=== PATIENT | male | born 1945 | race Caucasian/White ===

== ENCOUNTER 2021-07-23 16:17 | Emergency (ER) | payer MEDICARE, SELFPAY ==
[2021-07-23] VITALS (20 sets, daily range): BP systolic 118–162; BP diastolic 67–92; PULSE 84–101; RESP 15–20; TEMP 36.4; O2SAT 92–97
[2021-07-23 18:03] LABS: Add Manual Diff / Slide Review NO; Basophils Absolute Auto 0 /uL (0-100); Basophils Percent Auto 0.5 % (0-2); Eosinophils Absolute Auto 200 /uL (0-450); Eosinophils Percent Auto 3.4 % (2-4); Hemoglobin 13.6 g/dL (13.5-17.5); Lymphocytes Absolute Auto 1500 /uL (1100-4500); Lymphocytes Percent Auto 21.8 % (25-40); Mean Corpuscular HGB Conc 33.2 % (30-36); Mean Corpuscular Hemoglobin 29.7 PG (26-34); Mean Corpuscular Volume 89.4 fL (80-100); Monocytes Absolute Auto 700 /uL (0-900); Monocytes Percent Auto 10.6 % (3-14); Neutrophils Absolute Auto 4500 /uL (1500-7000); Neutrophils Percent Auto 63.7 % (50-75); Platelet Count 303 X10^3/uL (150-400); Red Blood Cell Count 4.58 X10^6/uL (4.5-5.9); Red Cell Distribution Width 14.8 % (11.6-14.8)
[2021-07-23 18:12] LABS: Alanine Aminotransferase 47 IU/L (<50); Albumin 4.3 g/dL (3.5-5.0); Albumin Globulin Ratio 0.9 (1.0-2.8); Alkaline Phosphatase 183 U/L (38-126); Aspartate Aminotransferase 55 IU/L (17-59); BUN Creatinine Ratio 25.2 (6-22); Bilirubin Total 0.5 mg/dL (0.2-1.3); Blood Urea Nitrogen 26 mg/dL (9-20); Calcium 9.7 mg/dL (8.4-10.2); Carbon Dioxide 25 mmol/L (22-32); Chloride 107 mmol/L (98-107); Estimated Glomerular Filt Rate > 60.0 mL/min (>60); Globulin 4.9 g/dL (1.7-4.1); Glucose 152 mg/dL (80-110); HEMOLYSIS < 15 (0-50); Lipase 121 U/L (23-300); Potassium 4.4 mmol/L (3.4-5.1); Sodium 139 mmol/L (137-145); Total Protein 9.2 g/dL (6.3-8.2)
[2021-07-23] MEDS: LORazepam 2 MG/ML INJ 1 MG IV (18:26)
--- NOTE | 2021-07-23 18:48 | PC.NURSE ---
Pt's son called, wanted update on pt's status. Advised the son that pt is agitated and restless, actively trying to get out of bed. Son is surprised at restlessness, states this is a new onset. Provider aware.
--- NOTE | 2021-07-23 18:52 | PC.NURSE ---
Pt is restless, agitated and actively trying to get out of bed. Provider aware. Pt given 1mg of Ativan to ease restlessness.
--- NOTE | 2021-07-23 19:42 | ED_ITS ---
HPI - Abdominal Pain <Lalo Caldera PA-C - Last Filed: 07/23/21 20:10> General Chief Complaint: Abdominal Pain Stated Complaint: abd pain, vomiting Time Seen by Provider: 07/23/21 16:34 Source: EMS and other Mode of arrival: EMS History of Present Illness HPI narrative: Patient is a 76-year-old male with a history of traumatic brain injury presenting to the emergency department via EMS for an evaluation of abdominal pain. Per EMS, they were contacted to assist the patient for reported abdominal pain and hematemesis. EMS states that they were unable to find evidence of hematemesis after arriving on the scene and the patient stated that he was not in any distress. Patient came to the emergency department from [facility]. Per the nurse from [facility] the patient was supposed to be sent to a custodial facility following a right hip hemiarthroplasty on 06/19/21, however the patient tested positive for COVID-19 on 06/23/2021 prior to his discharge and they were unable to find a custodial facility to take the patient. Patient has been at the [facility] since then. The nurse also notes that the patient has been increasingly agitated during the nighttime hours and has frequently attempted to get out of bed and has been a disturbance to other residents. Patient is unable to answer questions directly regarding his level of discomfort and what brought him to the emergency department. When asked he denies any episodes of vomiting or current abdominal pain. He states that he has not experienced any fever, chest pain, cough, shortness of breath, or any other concerning symptoms. Related Data Previous Rx's Medication Instructions Recorded cefpodoxime 200 mg tablet 200 mg PO BID 10 Days #20 tab 07/26/21 Allergies Allergy/AdvReac Type Severity Reaction Status Date / Time No Known Drug Allergies Allergy Verified 07/24/21 07:57 Review of Systems <Lalo Caldera PA-C - Last Filed: 07/23/21 20:10> Constitutional Constitutional: Denies chills, Denies fatigue, Denies fever(s), Denies frequent falls, Denies lethargy and Denies weakness Eyes Eyes: Denies loss of vision ENT Ears, Nose, Mouth, and Throat: Denies dizziness and Denies neck pain Cardiovascular Cardiovascular: Denies chest pain, Denies irregular heart rhythm, Denies lightheadedness, Denies palpitations, Denies dyspnea, Denies dyspnea on exertion and Denies orthopnea Respiratory Respiratory: Denies cough, Denies dyspnea, Denies dyspnea on exertion and Denies wheezing Gastrointestinal Gastrointestinal: Denies abdominal pain, Denies change in bowel habits, Denies diarrhea, Denies nausea and Denies vomiting Genitourinary Genitourinary: Denies hematuria, Denies flank pain, Denies urinary incontinence and Denies urinary urgency Musculoskeletal Musculoskeletal: Denies back pain, Denies muscle weakness, Denies neck pain, Denies numbness and Denies tingling Neurologic Neurologic: Denies behavioral changes, Denies confusion, Denies dizziness, Denies frequent falls, Denies loss of vision, Denies numbness, Denies tingling and Denies weakness Psychiatric Psychiatric: Denies behavioral changes and Denies confusion Endocrine Endocrine: Denies fatigue and Denies palpitations Allergic/Immunologic Allergic/Immunologic: Denies wheezing Patient History <Lalo Caldera PA-C - Last Filed: 07/23/21 20:10> Social History household members: family Exam <Lalo Caldera PA-C - Last Filed: 07/23/21 20:10> Narrative Exam Narrative: GENERAL: 76 year old patient appears stated age. Well-developed patient, in mild distress. Appears confused on questioning. HEAD: Atraumatic. Normocephalic. EYES: Pupils equal round and reactive. Extraocular motions intact. No scleral icterus. No injection or drainage. ENT: Nose without bleeding, purulent drainage. Throat without erythema, tonsillar hypertrophy or exudate. Airway patent. NECK: Trachea midline. Non tender CARDIOVASCULAR: Regular rate and rhythm without murmurs, gallops, or rubs. RESPIRATORY: Clear to auscultation. Breath sounds equal bilaterally. No wheezes, rales, or rhonchi. GASTROINTESTINAL: Abdomen soft, non-tender. Area apparent ecchymosis noted to the right lower quadrant. No significant tenderness to palpation noted throughout the four quadrants of the abdomen. EXTREMITIES: No edema or joint tenderness. BACK: Nontender without deformity or crepitance. No flank tenderness. NEURO: AOx3. SKIN: No rash or erythema of visible areas Initial Vital Signs Initial Vital Signs: Vital Signs Pulse Rate 87 07/23/21 16:20 Pulse Oximetry 96 07/23/21 16:20 <Genna Castillo MD - Last Filed: 07/27/21 00:17> Initial Vital Signs Initial Vital Signs: Vital Signs Pulse Rate 87 07/23/21 16:20 Pulse Oximetry 96 07/23/21 16:20 <Ro No DO - Last Filed: 08/02/21 04:59> Initial Vital Signs Initial Vital Signs: Vital Signs Pulse Rate 87 07/23/21 16:20 Pulse Oximetry 96 07/23/21 16:20 <Juma Hernandez DO - Last Filed: 07/26/21 18:54> Initial Vital Signs Initial Vital Signs: Vital Signs Pulse Rate 87 07/23/21 16:20 Pulse Oximetry 96 07/23/21 16:20 Course <Lalo Caldera PA-C - Last Filed: 07/23/21 20:10> Orders Ordered: Discontinued Medications Aspirin (Aspirin Ec 81 Mg Tablet) 81 mg PO DAILY [facility] Last Admin: 07/26/21 09:16 Dose: 81 mg Documented by: Admin: 07/25/21 08:54 Dose: 81 mg Documented by: Admin: 07/24/21 09:56 Dose: 81 mg Documented by: CRIS Atorvastatin Calcium (Atorvastatin 20 Mg Tablet) 20 mg PO DAILY [facility] Last Admin: 07/26/21 09:17 Dose: 20 mg Documented by: Admin: 07/25/21 09:16 Dose: 20 mg Documented by: VICTOR HUGO Admin: 07/24/21 09:56 Dose: 20 mg Documented by: CRIS Calcium Carbonate (Calcium Carbonate 500 Mg Tab) 500 mg PO NOW ONE Stop: 07/23/21 20:11 Last Admin: 07/23/21 21:35 Dose: Not Given Documented by: DRU Finasteride (Finasteride 5 Mg Tablet) 5 mg PO DAILY [facility] Last Admin: 07/26/21 09:17 Dose: 5 mg Documented by: Admin: 07/25/21 09:15 Dose: 5 mg Documented by: VICTOR HUGO Admin: 07/24/21 10:01 Dose: 5 mg Documented by: CRIS Ceftriaxone Sodium 1,000 mg/ (Sodium Chloride) 100 mls @ 200 mls/hr IV NOW ONE Stop: 07/26/21 17:20 Last Infusion: 07/26/21 18:29 Dose: 0 mls/hr Documented by: Admin: 07/26/21 17:00 Dose: 200 mls/hr Documented by: ERICA Insulin Glargine (Insulin Glargine 100 Unit/Ml 3ml Pen) 10 unit SUBCUT BEDTIME [facility] Last Admin: 07/25/21 21:16 Dose: 10 unit Documented by: CHEYENNE Cosigned by: SUSAN Admin: 07/24/21 21:08 Dose: 10 unit Documented by: APRIL Cosigned by: DRU Lamotrigine (Lamotrigine 25 Mg Chew Tablet) 25 mg PO NOW ONE Stop: 07/23/21 20:11 Last Admin: 07/23/21 21:35 Dose: Not Given Documented by: DRU Lamotrigine (Lamotrigine 100 Mg Tablet) 200 mg PO BID [facility] Last Admin: 07/26/21 09:18 Dose: 200 mg Documented by: Admin: 07/25/21 21:15 Dose: 200 mg Documented by: Admin: 07/25/21 08:54 Dose: 200 mg Documented by: Admin: 07/24/21 21:08 Dose: 200 mg Documented by: Admin: 07/24/21 10:00 Dose: 200 mg Documented by: CRIS Lamotrigine (Lamotrigine 25 Mg Chew Tablet) 25 mg PO BID [facility] Last Admin: 07/26/21 09:18 Dose: 25 mg Documented by: Admin: 07/25/21 21:14 Dose: 25 mg Documented by: Admin: 07/25/21 09:16 Dose: 25 mg Documented by: VICTOR HUGO Admin: 07/24/21 21:04 Dose: 25 mg Documented by: Admin: 07/24/21 10:00 Dose: 25 mg Documented by: CRIS Levetiracetam (Levetiracetam 250 Mg Tablet) 250 mg PO NOW ONE Stop: 07/23/21 20:11 Last Admin: 07/23/21 20:59 Dose: 250 mg Documented by: ISAIAH Lidocaine HCl (Lidocaine 2% (Glydo) 6 Ml Gel) 6 ml TOP NOW ONE Stop: 07/23/21 19:31 Last Admin: 07/23/21 20:17 Dose: 6 ml Documented by: ARTEM Lidocaine HCl (Lidocaine 2% (Glydo) 6 Ml Gel) 6 ml TOP NOW ONE Stop: 07/26/21 07:28 Last Admin: 07/26/21 07:53 Dose: 6 ml Documented by: DERIC Lorazepam (Lorazepam 0.5 Mg Tablet) 0.5 mg PO NOW ONE Stop: 07/23/21 18:14 Last Admin: 07/23/21 18:26 Dose: Not Given Documented by: CYN Lorazepam (Lorazepam 2 Mg/Ml Inj) 1 mg IV NOW ONE Stop: 07/23/21 18:20 Last Admin: 07/23/21 18:26 Dose: 1 mg Documented by: CYN Metoprolol Succinate (Metoprolol Er 25 Mg Tablet) 25 mg PO NOW ONE Stop: 07/23/21 20:11 Last Admin: 07/23/21 20:58 Dose: 25 mg Documented by: ISAIAH Metoprolol Succinate (Metoprolol Er 25 Mg Tablet) 12.5 mg PO BID [facility] Last Admin: 07/26/21 09:17 Dose: 12.5 mg Documented by: Admin: 07/25/21 21:15 Dose: 12.5 mg Documented by: Admin: 07/25/21 09:16 Dose: 12.5 mg Documented by: VICTOR HUGO Admin: 07/24/21 21:07 Dose: 12.5 mg Documented by: Admin: 07/24/21 09:56 Dose: 12.5 mg Documented by: CRIS Phenytoin (Phenytoin 50 Mg Chew Tab) 300 mg PO BID [facility] Phenytoin Sodium (Phenytoin Er 100 Mg Capsule) 300 mg PO DAILY [facility] Last Admin: 07/26/21 09:18 Dose: 300 mg Documented by: Admin: 07/25/21 09:15 Dose: 300 mg Documented by: VICTOR HUGO Admin: 07/24/21 10:01 Dose: 300 mg Documented by: CRIS Phenytoin Sodium (Phenytoin Er 100 Mg Capsule) 400 mg PO QPM [facility] Last Admin: 07/26/21 16:43 Dose: 400 mg Documented by: Admin: 07/25/21 17:30 Dose: 400 mg Documented by: Admin: 07/24/21 17:46 Dose: 400 mg Documented by: REAGANIKE Risperidone (Risperidone 1 Mg Tablet) 1 mg PO NOW ONE Stop: 07/24/21 22:06 Last Admin: 07/24/21 22:18 Dose: 1 mg Documented by: APRIL Tamsulosin HCl (Tamsulosin 0.4 Mg Capsule) 0.4 mg PO DAILY [facility] Last Admin: 07/26/21 09:19 Dose: 0.4 mg Documented by: Admin: 07/25/21 08:54 Dose: 0.4 mg Documented by: Admin: 07/24/21 10:00 Dose: 0.4 mg Documented by: CRIS Topiramate (Topiramate 25 Mg Tablet) 50 mg PO NOW ONE Stop: 07/23/21 20:11 Last Admin: 07/23/21 20:58 Dose: 50 mg Documented by: ISAIAH Topiramate (Topiramate 25 Mg Tablet) 50 mg PO BID [facility] Last Admin: 07/26/21 09:19 Dose: 50 mg Documented by: Admin: 07/25/21 21:15 Dose: 50 mg Documented by: Admin: 07/25/21 09:15 Dose: 50 mg Documented by: VICTOR HUGO Admin: 07/24/21 21:03 Dose: 50 mg Documented by: Admin: 07/24/21 10:01 Dose: 50 mg Documented by: CRIS Vital Signs Vital signs: Vital Signs - 8 hr 07/26/21 17:46 07/26/21 17:47 Pulse Rate 93 H Blood Pressure 105/63 Pulse Oximetry 95 <Genna Castillo MD - Last Filed: 07/27/21 00:17> Orders Ordered: Discontinued Medications Aspirin (Aspirin Ec 81 Mg Tablet) 81 mg PO DAILY [facility] Last Admin: 07/26/21 09:16 Dose: 81 mg Documented by: Admin: 07/25/21 08:54 Dose: 81 mg Documented by: Admin: 07/24/21 09:56 Dose: 81 mg Documented by: CRIS Atorvastatin Calcium (Atorvastatin 20 Mg Tablet) 20 mg PO DAILY [facility] Last Admin: 07/26/21 09:17 Dose: 20 mg Documented by: Admin: 07/25/21 09:16 Dose: 20 mg Documented by: VICTOR HUGO Admin: 07/24/21 09:56 Dose: 20 mg Documented by: CRIS Calcium Carbonate (Calcium Carbonate 500 Mg Tab) 500 mg PO NOW ONE Stop: 07/23/21 20:11 Last Admin: 07/23/21 21:35 Dose: Not Given Documented by: DRU Finasteride (Finasteride 5 Mg Tablet) 5 mg PO DAILY [facility] Last Admin: 07/26/21 09:17 Dose: 5 mg Documented by: Admin: 07/25/21 09:15 Dose: 5 mg Documented by: VICTOR HUGO Admin: 07/24/21 10:01 Dose: 5 mg Documented by: CRIS Ceftriaxone Sodium 1,000 mg/ (Sodium Chloride) 100 mls @ 200 mls/hr IV NOW ONE Stop: 07/26/21 17:20 Last Infusion: 07/26/21 18:29 Dose: 0 mls/hr Documented by: Admin: 07/26/21 17:00 Dose: 200 mls/hr Documented by: ERICA Insulin Glargine (Insulin Glargine 100 Unit/Ml 3ml Pen) 10 unit SUBCUT BEDTIME [facility] Last Admin: 07/25/21 21:16 Dose: 10 unit Documented by: CHEYENNE Cosigned by: SUSAN Admin: 07/24/21 21:08 Dose: 10 unit Documented by: APRIL Cosigned by: DRU Lamotrigine (Lamotrigine 25 Mg Chew Tablet) 25 mg PO NOW ONE Stop: 07/23/21 20:11 Last Admin: 07/23/21 21:35 Dose: Not Given Documented by: DRU Lamotrigine (Lamotrigine 100 Mg Tablet) 200 mg PO BID [facility] Last Admin: 07/26/21 09:18 Dose: 200 mg Documented by: Admin: 07/25/21 21:15 Dose: 200 mg Documented by: Admin: 07/25/21 08:54 Dose: 200 mg Documented by: Admin: 07/24/21 21:08 Dose: 200 mg Documented by: Admin: 07/24/21 10:00 Dose: 200 mg Documented by: CRIS Lamotrigine (Lamotrigine 25 Mg Chew Tablet) 25 mg PO BID [facility] Last Admin: 07/26/21 09:18 Dose: 25 mg Documented by: Admin: 07/25/21 21:14 Dose: 25 mg Documented by: Admin: 07/25/21 09:16 Dose: 25 mg Documented by: VICTOR HUGO Admin: 07/24/21 21:04 Dose: 25 mg Documented by: Admin: 07/24/21 10:00 Dose: 25 mg Documented by: CRIS Levetiracetam (Levetiracetam 250 Mg Tablet) 250 mg PO NOW ONE Stop: 07/23/21 20:11 Last Admin: 07/23/21 20:59 Dose: 250 mg Documented by: ISAIAH Lidocaine HCl (Lidocaine 2% (Glydo) 6 Ml Gel) 6 ml TOP NOW ONE Stop: 07/23/21 19:31 Last Admin: 07/23/21 20:17 Dose: 6 ml Documented by: ARTEM Lidocaine HCl (Lidocaine 2% (Glydo) 6 Ml Gel) 6 ml TOP NOW ONE Stop: 07/26/21 07:28 Last Admin: 07/26/21 07:53 Dose: 6 ml Documented by: DERIC Lorazepam (Lorazepam 0.5 Mg Tablet) 0.5 mg PO NOW ONE Stop: 07/23/21 18:14 Last Admin: 07/23/21 18:26 Dose: Not Given Documented by: CYN Lorazepam (Lorazepam 2 Mg/Ml Inj) 1 mg IV NOW ONE Stop: 07/23/21 18:20 Last Admin: 07/23/21 18:26 Dose: 1 mg Documented by: CYN Metoprolol Succinate (Metoprolol Er 25 Mg Tablet) 25 mg PO NOW ONE Stop: 07/23/21 20:11 Last Admin: 07/23/21 20:58 Dose: 25 mg Documented by: ISAIAH Metoprolol Succinate (Metoprolol Er 25 Mg Tablet) 12.5 mg PO BID [facility] Last Admin: 07/26/21 09:17 Dose: 12.5 mg Documented by: Admin: 07/25/21 21:15 Dose: 12.5 mg Documented by: Admin: 07/25/21 09:16 Dose: 12.5 mg Documented by: VICTOR HUGO Admin: 07/24/21 21:07 Dose: 12.5 mg Documented by: Admin: 07/24/21 09:56 Dose: 12.5 mg Documented by: CRIS Phenytoin (Phenytoin 50 Mg Chew Tab) 300 mg PO BID [facility] Phenytoin Sodium (Phenytoin Er 100 Mg Capsule) 300 mg PO DAILY [facility] Last Admin: 07/26/21 09:18 Dose: 300 mg Documented by: Admin: 07/25/21 09:15 Dose: 300 mg Documented by: VICTOR HUGO Admin: 07/24/21 10:01 Dose: 300 mg Documented by: CRIS Phenytoin Sodium (Phenytoin Er 100 Mg Capsule) 400 mg PO QPM [facility] Last Admin: 07/26/21 16:43 Dose: 400 mg Documented by: Admin: 07/25/21 17:30 Dose: 400 mg Documented by: Admin: 07/24/21 17:46 Dose: 400 mg Documented by: ERICA Risperidone (Risperidone 1 Mg Tablet) 1 mg PO NOW ONE Stop: 07/24/21 22:06 Last Admin: 07/24/21 22:18 Dose: 1 mg Documented by: APRIL Tamsulosin HCl (Tamsulosin 0.4 Mg Capsule) 0.4 mg PO DAILY [facility] Last Admin: 07/26/21 09:19 Dose: 0.4 mg Documented by: Admin: 07/25/21 08:54 Dose: 0.4 mg Documented by: Admin: 07/24/21 10:00 Dose: 0.4 mg Documented by: CRIS Topiramate (Topiramate 25 Mg Tablet) 50 mg PO NOW ONE Stop: 07/23/21 20:11 Last Admin: 07/23/21 20:58 Dose: 50 mg Documented by: ISAIAH Topiramate (Topiramate 25 Mg Tablet) 50 mg PO BID [facility] Last Admin: 07/26/21 09:19 Dose: 50 mg Documented by: Admin: 07/25/21 21:15 Dose: 50 mg Documented by: Admin: 07/25/21 09:15 Dose: 50 mg Documented by: VICTOR HUGO Admin: 07/24/21 21:03 Dose: 50 mg Documented by: Admin: 07/24/21 10:01 Dose: 50 mg Documented by: CRIS Vital Signs Vital signs: Vital Signs - 8 hr 07/26/21 17:46 07/26/21 17:47 Pulse Rate 93 H Blood Pressure 105/63 Pulse Oximetry 95 <Ro No DO - Last Filed: 08/02/21 04:59> Orders Ordered: Discontinued Medications Aspirin (Aspirin Ec 81 Mg Tablet) 81 mg PO DAILY [facility] Last Admin: 07/26/21 09:16 Dose: 81 mg Documented by: Admin: 07/25/21 08:54 Dose: 81 mg Documented by: Admin: 07/24/21 09:56 Dose: 81 mg Documented by: CRIS Atorvastatin Calcium (Atorvastatin 20 Mg Tablet) 20 mg PO DAILY [facility] Last Admin: 07/26/21 09:17 Dose: 20 mg Documented by: Admin: 07/25/21 09:16 Dose: 20 mg Documented by: VICTOR HUGO Admin: 07/24/21 09:56 Dose: 20 mg Documented by: CRIS Calcium Carbonate (Calcium Carbonate 500 Mg Tab) 500 mg PO NOW ONE Stop: 07/23/21 20:11 Last Admin: 07/23/21 21:35 Dose: Not Given Documented by: DRU Finasteride (Finasteride 5 Mg Tablet) 5 mg PO DAILY [facility] Last Admin: 07/26/21 09:17 Dose: 5 mg Documented by: Admin: 07/25/21 09:15 Dose: 5 mg Documented by: VICTOR HUGO Admin: 07/24/21 10:01 Dose: 5 mg Documented by: CRIS Ceftriaxone Sodium 1,000 mg/ (Sodium Chloride) 100 mls @ 200 mls/hr IV NOW ONE Stop: 07/26/21 17:20 Last Infusion: 07/26/21 18:29 Dose: 0 mls/hr Documented by: Admin: 07/26/21 17:00 Dose: 200 mls/hr Documented by: ERICA Insulin Glargine (Insulin Glargine 100 Unit/Ml 3ml Pen) 10 unit SUBCUT BEDTIME [facility] Last Admin: 07/25/21 21:16 Dose: 10 unit Documented by: CHEYENNE Cosigned by: SUSAN Admin: 07/24/21 21:08 Dose: 10 unit Documented by: APRIL Cosigned by: DRU Lamotrigine (Lamotrigine 25 Mg Chew Tablet) 25 mg PO NOW ONE Stop: 07/23/21 20:11 Last Admin: 07/23/21 21:35 Dose: Not Given Documented by: DRU Lamotrigine (Lamotrigine 100 Mg Tablet) 200 mg PO BID [facility] Last Admin: 07/26/21 09:18 Dose: 200 mg Documented by: Admin: 07/25/21 21:15 Dose: 200 mg Documented by: Admin: 07/25/21 08:54 Dose: 200 mg Documented by: Admin: 07/24/21 21:08 Dose: 200 mg Documented by: Admin: 07/24/21 10:00 Dose: 200 mg Documented by: CRIS Lamotrigine (Lamotrigine 25 Mg Chew Tablet) 25 mg PO BID [facility] Last Admin: 07/26/21 09:18 Dose: 25 mg Documented by: Admin: 07/25/21 21:14 Dose: 25 mg Documented by: Admin: 07/25/21 09:16 Dose: 25 mg Documented by: VICTOR HUGO Admin: 07/24/21 21:04 Dose: 25 mg Documented by: Admin: 07/24/21 10:00 Dose: 25 mg Documented by: CRIS Levetiracetam (Levetiracetam 250 Mg Tablet) 250 mg PO NOW ONE Stop: 07/23/21 20:11 Last Admin: 07/23/21 20:59 Dose: 250 mg Documented by: ISAIAH Lidocaine HCl (Lidocaine 2% (Glydo) 6 Ml Gel) 6 ml TOP NOW ONE Stop: 07/23/21 19:31 Last Admin: 07/23/21 20:17 Dose: 6 ml Documented by: ARTEM Lidocaine HCl (Lidocaine 2% (Glydo) 6 Ml Gel) 6 ml TOP NOW ONE Stop: 07/26/21 07:28 Last Admin: 07/26/21 07:53 Dose: 6 ml Documented by: DERIC Lorazepam (Lorazepam 0.5 Mg Tablet) 0.5 mg PO NOW ONE Stop: 07/23/21 18:14 Last Admin: 07/23/21 18:26 Dose: Not Given Documented by: CYN Lorazepam (Lorazepam 2 Mg/Ml Inj) 1 mg IV NOW ONE Stop: 07/23/21 18:20 Last Admin: 07/23/21 18:26 Dose: 1 mg Documented by: CYN Metoprolol Succinate (Metoprolol Er 25 Mg Tablet) 25 mg PO NOW ONE Stop: 07/23/21 20:11 Last Admin: 07/23/21 20:58 Dose: 25 mg Documented by: ISAIAH Metoprolol Succinate (Metoprolol Er 25 Mg Tablet) 12.5 mg PO BID [facility] Last Admin: 07/26/21 09:17 Dose: 12.5 mg Documented by: Admin: 07/25/21 21:15 Dose: 12.5 mg Documented by: Admin: 07/25/21 09:16 Dose: 12.5 mg Documented by: VICTOR HUGO Admin: 07/24/21 21:07 Dose: 12.5 mg Documented by: Admin: 07/24/21 09:56 Dose: 12.5 mg Documented by: CRIS Phenytoin (Phenytoin 50 Mg Chew Tab) 300 mg PO BID [facility] Phenytoin Sodium (Phenytoin Er 100 Mg Capsule) 300 mg PO DAILY [facility] Last Admin: 07/26/21 09:18 Dose: 300 mg Documented by: Admin: 07/25/21 09:15 Dose: 300 mg Documented by: VICTOR HUGO Admin: 07/24/21 10:01 Dose: 300 mg Documented by: CRIS Phenytoin Sodium (Phenytoin Er 100 Mg Capsule) 400 mg PO QPM [facility] Last Admin: 07/26/21 16:43 Dose: 400 mg Documented by: Admin: 07/25/21 17:30 Dose: 400 mg Documented by: Admin: 07/24/21 17:46 Dose: 400 mg Documented by: ERICA Risperidone (Risperidone 1 Mg Tablet) 1 mg PO NOW ONE Stop: 07/24/21 22:06 Last Admin: 07/24/21 22:18 Dose: 1 mg Documented by: APRIL Tamsulosin HCl (Tamsulosin 0.4 Mg Capsule) 0.4 mg PO DAILY [facility] Last Admin: 07/26/21 09:19 Dose: 0.4 mg Documented by: Admin: 07/25/21 08:54 Dose: 0.4 mg Documented by: Admin: 07/24/21 10:00 Dose: 0.4 mg Documented by: CRIS Topiramate (Topiramate 25 Mg Tablet) 50 mg PO NOW ONE Stop: 07/23/21 20:11 Last Admin: 07/23/21 20:58 Dose: 50 mg Documented by: ISAIAH Topiramate (Topiramate 25 Mg Tablet) 50 mg PO BID [facility] Last Admin: 07/26/21 09:19 Dose: 50 mg Documented by: Admin: 07/25/21 21:15 Dose: 50 mg Documented by: Admin: 07/25/21 09:15 Dose: 50 mg Documented by: VICTOR HUGO Admin: 07/24/21 21:03 Dose: 50 mg Documented by: Admin: 07/24/21 10:01 Dose: 50 mg Documented by: CRIS Vital Signs Vital signs: Vital Signs - 8 hr 07/26/21 17:46 07/26/21 17:47 Pulse Rate 93 H Blood Pressure 105/63 Pulse Oximetry 95 <Juma Hernandez DO - Last Filed: 07/26/21 18:54> Orders Ordered: Discontinued Medications Aspirin (Aspirin Ec 81 Mg Tablet) 81 mg PO DAILY [facility] Last Admin: 07/26/21 09:16 Dose: 81 mg Documented by: Admin: 07/25/21 08:54 Dose: 81 mg Documented by: Admin: 07/24/21 09:56 Dose: 81 mg Documented by: CRIS Atorvastatin Calcium (Atorvastatin 20 Mg Tablet) 20 mg PO DAILY [facility] Last Admin: 07/26/21 09:17 Dose: 20 mg Documented by: Admin: 07/25/21 09:16 Dose: 20 mg Documented by: VICTOR HUGO Admin: 07/24/21 09:56 Dose: 20 mg Documented by: CRIS Calcium Carbonate (Calcium Carbonate 500 Mg Tab) 500 mg PO NOW ONE Stop: 07/23/21 20:11 Last Admin: 07/23/21 21:35 Dose: Not Given Documented by: DRU Finasteride (Finasteride 5 Mg Tablet) 5 mg PO DAILY [facility] Last Admin: 07/26/21 09:17 Dose: 5 mg Documented by: Admin: 07/25/21 09:15 Dose: 5 mg Documented by: VICTOR HUGO Admin: 07/24/21 10:01 Dose: 5 mg Documented by: CRIS Ceftriaxone Sodium 1,000 mg/ (Sodium Chloride) 100 mls @ 200 mls/hr IV NOW ONE Stop: 07/26/21 17:20 Last Infusion: 07/26/21 18:29 Dose: 0 mls/hr Documented by: Admin: 07/26/21 17:00 Dose: 200 mls/hr Documented by: ERICA Insulin Glargine (Insulin Glargine 100 Unit/Ml 3ml Pen) 10 unit SUBCUT BEDTIME [facility] Last Admin: 07/25/21 21:16 Dose: 10 unit Documented by: CHEYENNE Cosigned by: SUSAN Admin: 07/24/21 21:08 Dose: 10 unit Documented by: APRIL Cosigned by: DRU Lamotrigine (Lamotrigine 25 Mg Chew Tablet) 25 mg PO NOW ONE Stop: 07/23/21 20:11 Last Admin: 07/23/21 21:35 Dose: Not Given Documented by: DRU Lamotrigine (Lamotrigine 100 Mg Tablet) 200 mg PO BID [facility] Last Admin: 07/26/21 09:18 Dose: 200 mg Documented by: Admin: 07/25/21 21:15 Dose: 200 mg Documented by: Admin: 07/25/21 08:54 Dose: 200 mg Documented by: Admin: 07/24/21 21:08 Dose: 200 mg Documented by: Admin: 07/24/21 10:00 Dose: 200 mg Documented by: CRIS Lamotrigine (Lamotrigine 25 Mg Chew Tablet) 25 mg PO BID [facility] Last Admin: 07/26/21 09:18 Dose: 25 mg Documented by: Admin: 07/25/21 21:14 Dose: 25 mg Documented by: Admin: 07/25/21 09:16 Dose: 25 mg Documented by: VICTOR HUGO Admin: 07/24/21 21:04 Dose: 25 mg Documented by: Admin: 07/24/21 10:00 Dose: 25 mg Documented by: CRIS Levetiracetam (Levetiracetam 250 Mg Tablet) 250 mg PO NOW ONE Stop: 07/23/21 20:11 Last Admin: 07/23/21 20:59 Dose: 250 mg Documented by: ISAIAH Lidocaine HCl (Lidocaine 2% (Glydo) 6 Ml Gel) 6 ml TOP NOW ONE Stop: 07/23/21 19:31 Last Admin: 07/23/21 20:17 Dose: 6 ml Documented by: ARTEM Lidocaine HCl (Lidocaine 2% (Glydo) 6 Ml Gel) 6 ml TOP NOW ONE Stop: 07/26/21 07:28 Last Admin: 07/26/21 07:53 Dose: 6 ml Documented by: DERIC Lorazepam (Lorazepam 0.5 Mg Tablet) 0.5 mg PO NOW ONE Stop: 07/23/21 18:14 Last Admin: 07/23/21 18:26 Dose: Not Given Documented by: CYN Lorazepam (Lorazepam 2 Mg/Ml Inj) 1 mg IV NOW ONE Stop: 07/23/21 18:20 Last Admin: 07/23/21 18:26 Dose: 1 mg Documented by: CYN Metoprolol Succinate (Metoprolol Er 25 Mg Tablet) 25 mg PO NOW ONE Stop: 07/23/21 20:11 Last Admin: 07/23/21 20:58 Dose: 25 mg Documented by: ISAIAH Metoprolol Succinate (Metoprolol Er 25 Mg Tablet) 12.5 mg PO BID [facility] Last Admin: 07/26/21 09:17 Dose: 12.5 mg Documented by: Admin: 07/25/21 21:15 Dose: 12.5 mg Documented by: Admin: 07/25/21 09:16 Dose: 12.5 mg Documented by: VICTOR HUGO Admin: 07/24/21 21:07 Dose: 12.5 mg Documented by: Admin: 07/24/21 09:56 Dose: 12.5 mg Documented by: CRIS Phenytoin (Phenytoin 50 Mg Chew Tab) 300 mg PO BID [facility] Phenytoin Sodium (Phenytoin Er 100 Mg Capsule) 300 mg PO DAILY [facility] Last Admin: 07/26/21 09:18 Dose: 300 mg Documented by: Admin: 07/25/21 09:15 Dose: 300 mg Documented by: VICTOR HUGO Admin: 07/24/21 10:01 Dose: 300 mg Documented by: CRIS Phenytoin Sodium (Phenytoin Er 100 Mg Capsule) 400 mg PO QPM [facility] Last Admin: 07/26/21 16:43 Dose: 400 mg Documented by: Admin: 07/25/21 17:30 Dose: 400 mg Documented by: Admin: 07/24/21 17:46 Dose: 400 mg Documented by: ERICA Risperidone (Risperidone 1 Mg Tablet) 1 mg PO NOW ONE Stop: 07/24/21 22:06 Last Admin: 07/24/21 22:18 Dose: 1 mg Documented by: APRIL Tamsulosin HCl (Tamsulosin 0.4 Mg Capsule) 0.4 mg PO DAILY [facility] Last Admin: 07/26/21 09:19 Dose: 0.4 mg Documented by: Admin: 07/25/21 08:54 Dose: 0.4 mg Documented by: Admin: 07/24/21 10:00 Dose: 0.4 mg Documented by: CRIS Topiramate (Topiramate 25 Mg Tablet) 50 mg PO NOW ONE Stop: 07/23/21 20:11 Last Admin: 07/23/21 20:58 Dose: 50 mg Documented by: ISAIAH Topiramate (Topiramate 25 Mg Tablet) 50 mg PO BID [facility] Last Admin: 07/26/21 09:19 Dose: 50 mg Documented by: Admin: 07/25/21 21:15 Dose: 50 mg Documented by: Admin: 07/25/21 09:15 Dose: 50 mg Documented by: VICTOR HUGO Admin: 07/24/21 21:03 Dose: 50 mg Documented by: Admin: 07/24/21 10:01 Dose: 50 mg Documented by: CRIS Vital Signs Vital signs: Vital Signs - 8 hr 07/26/21 17:46 07/26/21 17:47 Pulse Rate 93 H Blood Pressure 105/63 Pulse Oximetry 95 MDM - Abdominal Pain <Lalo Caldera PA-C - Last Filed: 07/23/21 20:10> Lab Data Result diagrams: 07/26/21 10:08 07/26/21 10:08 Labs: Lab Results 07/23/21 07/23/21 07/23/21 Range/Units 17:35 17:35 19:45 WBC 7.0 (4.5-11.0) X10^3/uL RBC 4.58 (4.5-5.9) X10^6/uL Hgb 13.6 (13.5-17.5) g/dL Hct 41.0 (41-53) % MCV 89.4 (80-100) fL MCH 29.7 (26-34) PG MCHC 33.2 (30-36) % RDW 14.8 (11.6-14.8) % Plt Count 303 (150-400) X10^3/uL Neut % (Auto) 63.7 (50-75) % Lymph % (Auto) 21.8 L (25-40) % Saunders % (Auto) 10.6 (3-14) % Eos % (Auto) 3.4 (2-4) % Baso % (Auto) 0.5 (0-2) % Neut # (Auto) 4500 (2566-7988) /uL Lymph # (Auto) 1500 (6477-2860) /uL Saunders # (Auto) 700 (0-900) /uL Eos # (Auto) 200 (0-450) /uL Baso # (Auto) 0 (0-100) /uL Sodium 139 (137-145) mmol/L Potassium 4.4 (3.4-5.1) mmol/L Chloride 107 (98-107) mmol/L Carbon Dioxide 25 (22-32) mmol/L BUN 26 H (9-20) mg/dL Creatinine 1.03 (0.66-1.25) mg/dL Estimated GFR > 60.0 (>60) mL/min BUN/Creatinine Ratio 25.2 H (6-22) Glucose 152 H (80-110) mg/dL Calcium 9.7 (8.4-10.2) mg/dL Total Bilirubin 0.5 (0.2-1.3) mg/dL AST 55 (17-59) IU/L ALT 47 (<50) IU/L Alkaline Phosphatase 183 H (38-126) U/L Total Protein 9.2 H (6.3-8.2) g/dL Albumin 4.3 (3.5-5.0) g/dL Globulin 4.9 H (1.7-4.1) g/dL Albumin/Globulin Ratio 0.9 L (1.0-2.8) Lipase 121 (23-300) U/L Urine Color Dark yellow Urine Appearance Clear Urine pH 5.0 (4.5-8.0) Ur Specific [place] 1.025 (1.000-1.035) Urine Protein 1+ H (Negative) Urine Glucose (UA) Negative (Negative) g/dL Urine Ketones 1+ H (NEGATIVE) Urine Occult Blood Negative (Negative) Urine Nitrate Negative (Negative) Urine Bilirubin Negative (NEGATIVE) Urine Urobilinogen 0.2 (0.2) E.U./dL Ur Leukocyte Esterase Negative (NEGATIVE) Urine RBC 0-1/hpf (0-5/HPF) Urine WBC 0-1/hpf (0-5/HPF) Ur Squamous Epith Cells 0-1 /hpf (0-5/HPF) Calcium Oxalate Crystal Few H Amorphous Sediment Urine Bacteria Occasional (0-1) (None) Hyaline Casts 0-1/lpf (None) Ur Culture Indicated? Cult not indicated SARS-CoV-2 (PCR) (Negative) 07/23/21 07/26/21 07/26/21 Range/Units 20:05 10:08 10:08 WBC 11.7 H (4.5-11.0) X10^3/uL RBC 4.59 (4.5-5.9) X10^6/uL Hgb 13.5 (13.5-17.5) g/dL Hct 41.1 (41-53) % MCV 89.6 (80-100) fL MCH 29.4 (26-34) PG MCHC 32.7 (30-36) % RDW 14.5 (11.6-14.8) % Plt Count 312 (150-400) X10^3/uL Neut % (Auto) 77.6 H (50-75) % Lymph % (Auto) 11.2 L (25-40) % Saunders % (Auto) 9.5 (3-14) % Eos % (Auto) 1.6 L (2-4) % Baso % (Auto) 0.1 (0-2) % Neut # (Auto) 9100 H (4499-4014) /uL Lymph # (Auto) 1300 (9740-8469) /uL Saunders # (Auto) 1100 H (0-900) /uL Eos # (Auto) 200 (0-450) /uL Baso # (Auto) 0 (0-100) /uL Sodium 134 L (137-145) mmol/L Potassium 4.4 (3.4-5.1) mmol/L Chloride 100 (98-107) mmol/L Carbon Dioxide 28 (22-32) mmol/L BUN 18 (9-20) mg/dL Creatinine 0.79 (0.66-1.25) mg/dL Estimated GFR > 60.0 (>60) mL/min BUN/Creatinine Ratio 22.8 H (6-22) Glucose 222 H (80-110) mg/dL Calcium 9.3 (8.4-10.2) mg/dL Total Bilirubin 0.7 (0.2-1.3) mg/dL AST 56 (17-59) IU/L ALT 46 (<50) IU/L Alkaline Phosphatase 164 H (38-126) U/L Total Protein 9.1 H (6.3-8.2) g/dL Albumin 4.2 (3.5-5.0) g/dL Globulin 4.9 H (1.7-4.1) g/dL Albumin/Globulin Ratio 0.9 L (1.0-2.8) Lipase (23-300) U/L Urine Color Urine Appearance Urine pH (4.5-8.0) Ur Specific [place] (1.000-1.035) Urine Protein (Negative) Urine Glucose (UA) (Negative) g/dL Urine Ketones (NEGATIVE) Urine Occult Blood (Negative) Urine Nitrate (Negative) Urine Bilirubin (NEGATIVE) Urine Urobilinogen (0.2) E.U./dL Ur Leukocyte Esterase (NEGATIVE) Urine RBC (0-5/HPF) Urine WBC (0-5/HPF) Ur Squamous Epith Cells (0-5/HPF) Calcium Oxalate Crystal Amorphous Sediment Urine Bacteria (None) Hyaline Casts (None) Ur Culture Indicated? SARS-CoV-2 (PCR) Positive H (Negative) 07/26/21 07/26/21 Range/Units 12:20 17:06 WBC (4.5-11.0) X10^3/uL RBC (4.5-5.9) X10^6/uL Hgb (13.5-17.5) g/dL Hct (41-53) % MCV (80-100) fL MCH (26-34) PG MCHC (30-36) % RDW (11.6-14.8) % Plt Count (150-400) X10^3/uL Neut % (Auto) (50-75) % Lymph % (Auto) (25-40) % Saunders % (Auto) (3-14) % Eos % (Auto) (2-4) % Baso % (Auto) (0-2) % Neut # (Auto) (9181-1388) /uL Lymph # (Auto) (8879-4666) /uL Saunders # (Auto) (0-900) /uL Eos # (Auto) (0-450) /uL Baso # (Auto) (0-100) /uL Sodium (137-145) mmol/L Potassium (3.4-5.1) mmol/L Chloride (98-107) mmol/L Carbon Dioxide (22-32) mmol/L BUN (9-20) mg/dL Creatinine (0.66-1.25) mg/dL Estimated GFR (>60) mL/min BUN/Creatinine Ratio (6-22) Glucose (80-110) mg/dL Calcium (8.4-10.2) mg/dL Total Bilirubin (0.2-1.3) mg/dL AST (17-59) IU/L ALT (<50) IU/L Alkaline Phosphatase (38-126) U/L Total Protein (6.3-8.2) g/dL Albumin (3.5-5.0) g/dL Globulin (1.7-4.1) g/dL Albumin/Globulin Ratio (1.0-2.8) Lipase (23-300) U/L Urine Color Yellow Urine Appearance Cloudy Urine pH 7.0 (4.5-8.0) Ur Specific [place] 1.020 (1.000-1.035) Urine Protein 2+ H (Negative) Urine Glucose (UA) 1+ H (Negative) g/dL Urine Ketones Negative (NEGATIVE) Urine Occult Blood 3+ H (Negative) Urine Nitrate Negative (Negative) Urine Bilirubin Negative (NEGATIVE) Urine Urobilinogen 1.0 (0.2) E.U./dL Ur Leukocyte Esterase 1+ H (NEGATIVE) Urine RBC 10-30/hpf H (0-5/HPF) Urine WBC 5-10/hpf H (0-5/HPF) Ur Squamous Epith Cells (0-5/HPF) Calcium Oxalate Crystal Amorphous Sediment 1+ Urine Bacteria Moderate (10-30) H (None) Hyaline Casts (None) Ur Culture Indicated? Specimen cultured SARS-CoV-2 (PCR) Negative (Negative) Point of care testing: Point of Care Testing Glucose POC 266 Urine Dip Bedside Urine Glucose Negative Bedside Urine Bilirubin + 1 Bedside Urine Ketone +/- 5 Urine Specific [place] 1.03 Bedside Urine Occult Blood - Negative Bedside Urine pH 6 Bedside Urine Protein + 30 Bedside Urine Urobilinogen - Negative Bedside Urine Nitrite - Negative Bedside Urine Leukocytes - Negative Esterase MDM Narrative Medical decision making narrative: Transfer of care from Lalo Caldera PA-c to Dr. Castillo at 2000. <Genna Castillo MD - Last Filed: 07/27/21 00:17> Lab Data Labs: Lab Results 07/23/21 07/23/21 07/23/21 Range/Units 17:35 17:35 19:45 WBC 7.0 (4.5-11.0) X10^3/uL RBC 4.58 (4.5-5.9) X10^6/uL Hgb 13.6 (13.5-17.5) g/dL Hct 41.0 (41-53) % MCV 89.4 (80-100) fL MCH 29.7 (26-34) PG MCHC 33.2 (30-36) % RDW 14.8 (11.6-14.8) % Plt Count 303 (150-400) X10^3/uL Neut % (Auto) 63.7 (50-75) % Lymph % (Auto) 21.8 L (25-40) % Saunders % (Auto) 10.6 (3-14) % Eos % (Auto) 3.4 (2-4) % Baso % (Auto) 0.5 (0-2) % Neut # (Auto) 4500 (5946-8342) /uL Lymph # (Auto) 1500 (4619-3276) /uL Saunders # (Auto) 700 (0-900) /uL Eos # (Auto) 200 (0-450) /uL Baso # (Auto) 0 (0-100) /uL Sodium 139 (137-145) mmol/L Potassium 4.4 (3.4-5.1) mmol/L Chloride 107 (98-107) mmol/L Carbon Dioxide 25 (22-32) mmol/L BUN 26 H (9-20) mg/dL Creatinine 1.03 (0.66-1.25) mg/dL Estimated GFR > 60.0 (>60) mL/min BUN/Creatinine Ratio 25.2 H (6-22) Glucose 152 H (80-110) mg/dL Calcium 9.7 (8.4-10.2) mg/dL Total Bilirubin 0.5 (0.2-1.3) mg/dL AST 55 (17-59) IU/L ALT 47 (<50) IU/L Alkaline Phosphatase 183 H (38-126) U/L Total Protein 9.2 H (6.3-8.2) g/dL Albumin 4.3 (3.5-5.0) g/dL Globulin 4.9 H (1.7-4.1) g/dL Albumin/Globulin Ratio 0.9 L (1.0-2.8) Lipase 121 (23-300) U/L Urine Color Dark yellow Urine Appearance Clear Urine pH 5.0 (4.5-8.0) Ur Specific [place] 1.025 (1.000-1.035) Urine Protein 1+ H (Negative) Urine Glucose (UA) Negative (Negative) g/dL Urine Ketones 1+ H (NEGATIVE) Urine Occult Blood Negative (Negative) Urine Nitrate Negative (Negative) Urine Bilirubin Negative (NEGATIVE) Urine Urobilinogen 0.2 (0.2) E.U./dL Ur Leukocyte Esterase Negative (NEGATIVE) Urine RBC 0-1/hpf (0-5/HPF) Urine WBC 0-1/hpf (0-5/HPF) Ur Squamous Epith Cells 0-1 /hpf (0-5/HPF) Calcium Oxalate Crystal Few H Amorphous Sediment Urine Bacteria Occasional (0-1) (None) Hyaline Casts 0-1/lpf (None) Ur Culture Indicated? Cult not indicated SARS-CoV-2 (PCR) (Negative) 07/23/21 07/26/21 07/26/21 Range/Units 20:05 10:08 10:08 WBC 11.7 H (4.5-11.0) X10^3/uL RBC 4.59 (4.5-5.9) X10^6/uL Hgb 13.5 (13.5-17.5) g/dL Hct 41.1 (41-53) % MCV 89.6 (80-100) fL MCH 29.4 (26-34) PG MCHC 32.7 (30-36) % RDW 14.5 (11.6-14.8) % Plt Count 312 (150-400) X10^3/uL Neut % (Auto) 77.6 H (50-75) % Lymph % (Auto) 11.2 L (25-40) % Saunders % (Auto) 9.5 (3-14) % Eos % (Auto) 1.6 L (2-4) % Baso % (Auto) 0.1 (0-2) % Neut # (Auto) 9100 H (9717-9317) /uL Lymph # (Auto) 1300 (2195-0483) /uL Saunders # (Auto) 1100 H (0-900) /uL Eos # (Auto) 200 (0-450) /uL Baso # (Auto) 0 (0-100) /uL Sodium 134 L (137-145) mmol/L Potassium 4.4 (3.4-5.1) mmol/L Chloride 100 (98-107) mmol/L Carbon Dioxide 28 (22-32) mmol/L BUN 18 (9-20) mg/dL Creatinine 0.79 (0.66-1.25) mg/dL Estimated GFR > 60.0 (>60) mL/min BUN/Creatinine Ratio 22.8 H (6-22) Glucose 222 H (80-110) mg/dL Calcium 9.3 (8.4-10.2) mg/dL Total Bilirubin 0.7 (0.2-1.3) mg/dL AST 56 (17-59) IU/L ALT 46 (<50) IU/L Alkaline Phosphatase 164 H (38-126) U/L Total Protein 9.1 H (6.3-8.2) g/dL Albumin 4.2 (3.5-5.0) g/dL Globulin 4.9 H (1.7-4.1) g/dL Albumin/Globulin Ratio 0.9 L (1.0-2.8) Lipase (23-300) U/L Urine Color Urine Appearance Urine pH (4.5-8.0) Ur Specific [place] (1.000-1.035) Urine Protein (Negative) Urine Glucose (UA) (Negative) g/dL Urine Ketones (NEGATIVE) Urine Occult Blood (Negative) Urine Nitrate (Negative) Urine Bilirubin (NEGATIVE) Urine Urobilinogen (0.2) E.U./dL Ur Leukocyte Esterase (NEGATIVE) Urine RBC (0-5/HPF) Urine WBC (0-5/HPF) Ur Squamous Epith Cells (0-5/HPF) Calcium Oxalate Crystal Amorphous Sediment Urine Bacteria (None) Hyaline Casts (None) Ur Culture Indicated? SARS-CoV-2 (PCR) Positive H (Negative) 07/26/21 07/26/21 Range/Units 12:20 17:06 WBC (4.5-11.0) X10^3/uL RBC (4.5-5.9) X10^6/uL Hgb (13.5-17.5) g/dL Hct (41-53) % MCV (80-100) fL MCH (26-34) PG MCHC (30-36) % RDW (11.6-14.8) % Plt Count (150-400) X10^3/uL Neut % (Auto) (50-75) % Lymph % (Auto) (25-40) % Saunders % (Auto) (3-14) % Eos % (Auto) (2-4) % Baso % (Auto) (0-2) % Neut # (Auto) (5734-4410) /uL Lymph # (Auto) (5175-0046) /uL Saunders # (Auto) (0-900) /uL Eos # (Auto) (0-450) /uL Baso # (Auto) (0-100) /uL Sodium (137-145) mmol/L Potassium (3.4-5.1) mmol/L Chloride (98-107) mmol/L Carbon Dioxide (22-32) mmol/L BUN (9-20) mg/dL Creatinine (0.66-1.25) mg/dL Estimated GFR (>60) mL/min BUN/Creatinine Ratio (6-22) Glucose (80-110) mg/dL Calcium (8.4-10.2) mg/dL Total Bilirubin (0.2-1.3) mg/dL AST (17-59) IU/L ALT (<50) IU/L Alkaline Phosphatase (38-126) U/L Total Protein (6.3-8.2) g/dL Albumin (3.5-5.0) g/dL Globulin (1.7-4.1) g/dL Albumin/Globulin Ratio (1.0-2.8) Lipase (23-300) U/L Urine Color Yellow Urine Appearance Cloudy Urine pH 7.0 (4.5-8.0) Ur Specific [place] 1.020 (1.000-1.035) Urine Protein 2+ H (Negative) Urine Glucose (UA) 1+ H (Negative) g/dL Urine Ketones Negative (NEGATIVE) Urine Occult Blood 3+ H (Negative) Urine Nitrate Negative (Negative) Urine Bilirubin Negative (NEGATIVE) Urine Urobilinogen 1.0 (0.2) E.U./dL Ur Leukocyte Esterase 1+ H (NEGATIVE) Urine RBC 10-30/hpf H (0-5/HPF) Urine WBC 5-10/hpf H (0-5/HPF) Ur Squamous Epith Cells (0-5/HPF) Calcium Oxalate Crystal Amorphous Sediment 1+ Urine Bacteria Moderate (10-30) H (None) Hyaline Casts (None) Ur Culture Indicated? Specimen cultured SARS-CoV-2 (PCR) Negative (Negative) Point of care testing: Point of Care Testing Glucose POC 266 Urine Dip Bedside Urine Glucose Negative Bedside Urine Bilirubin + 1 Bedside Urine Ketone +/- 5 Urine Specific [place] 1.03 Bedside Urine Occult Blood - Negative Bedside Urine pH 6 Bedside Urine Protein + 30 Bedside Urine Urobilinogen - Negative Bedside Urine Nitrite - Negative Bedside Urine Leukocytes - Negative Esterase ECG Data Interpretation: Sinus rhythm at a rate of 84 Left axis deviation Low voltage across the precordium no acute ischemic changes MDM Narrative Medical decision making narrative: Transfer of care from Lalo Caldera PA-c to Dr. Castillo at 1999, 07/23/2021 9:[address] Castillo Talked staff at correction. They report significant behavioral acting out, requiring 2-3 people to help movement bed, severe pain behaviors related to his recent hip surgery. 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 At this point the staff the correction is very reluctant to have him back as he is requiring so many people to help care for him. Will ask Physical therapy to do an evaluation in the morning and have social workers again involved in helping with disposition His COVID test does remain positive, he is not showing any clinical signs of respiratory issues. He is not evidencing pain behaviors at this time. All of his nighttime medications have been ordered Medical workup does not suggest acute bacterial infection, complications of his recent hip surgery, no acute cardiac issues or evidence of bladder infection. 2Dr Mank: Patient signed out to myself by Dr. Castillo. Patient arrived yesterday during my shift and was seen by Lalo Caldera our PA but case was discussed with myself. Patient has done well overnight with no additional pain or vomiting. He is COVID positive still. Plan is for him to be evaluated by PT this morning and social work's persistent with disposition. Patient had been discharged from [facility] to an adult family home but the initial goal had been for a SNF because patient was COVID positive this was not possible. The adult family home states that he requires significant assistance up to 3 people regularly and they do not have the staffing able to care for him appropriately. Patient's labs and imaging reviewed. He came for abdominal pain and vomiting but has not had any additional since arrival with reassuring labs and vitals so additional imaging had not been performed which seems appropriate. PT saw patient today and he does require assistance and direction. AREA REPRESENTATIVE also saw patient and was in contact with 2 covid SNFs and adult family home patient came from yesterday. 10pm [facility] Quite day today. Still no placement options but AREA REPRESENTATIVE has made additional calls to SNFs that can accept covid patients. Had all of his usual HS meds. He is increasingly agitated with mild visual hallucinations. No hypoxia or fever. Most consistent with Sundowning. Will try 1mg oral risperdal. 10:20 pm patient is exhibiting behaviors described his correction. Dramatic yelling out saying that he hurts with increasing agitation. With nursing intervention and cognitive redirecting, symptoms are able to be alleviated. This does not appear to be a primary pain issue rather a behavioral complication of 07/25/21. Marybel. Patient care returned to myself. Patient had behavioral issues overnight but responded to 1mg oral risperdal and redirection. Plan today for PT to re-evaluate with adult family home to see if appropriate for there resources. AREA REPRESENTATIVE returning for additional care. Dr Castillo 07/25/21 6:40pm discussed with AREA REPRESENTATIVE. She is reviewed with daughter regarding difficulties in having him placed in a custodial facility given the fact that he is not going to be rehabbing. They were not able to help with staff training at correction because only 1 staff member showed up today. He is unwilling to get up out of bed and will need a Franco lift. Daughter and son are seriously considering arranging care for home and taking this gentleman home directly. They do understand that a decision needs to be made by tomorrow as he is simply lodging in the emergency department with no progress being made. Will anticipate continued voiding through the emergency room this evening. All routine meds have been ordered. <Ro No, DO - Last Filed: 08/02/21 04:59> Lab Data Labs: Lab Results 07/23/21 07/23/21 07/23/21 Range/Units 17:35 17:35 19:45 WBC 7.0 (4.5-11.0) X10^3/uL RBC 4.58 (4.5-5.9) X10^6/uL Hgb 13.6 (13.5-17.5) g/dL Hct 41.0 (41-53) % MCV 89.4 (80-100) fL MCH 29.7 (26-34) PG MCHC 33.2 (30-36) % RDW 14.8 (11.6-14.8) % Plt Count 303 (150-400) X10^3/uL Neut % (Auto) 63.7 (50-75) % Lymph % (Auto) 21.8 L (25-40) % Saunders % (Auto) 10.6 (3-14) % Eos % (Auto) 3.4 (2-4) % Baso % (Auto) 0.5 (0-2) % Neut # (Auto) 4500 (8095-6296) /uL Lymph # (Auto) 1500 (3462-2454) /uL Saunders # (Auto) 700 (0-900) /uL Eos # (Auto) 200 (0-450) /uL Baso # (Auto) 0 (0-100) /uL Sodium 139 (137-145) mmol/L Potassium 4.4 (3.4-5.1) mmol/L Chloride 107 (98-107) mmol/L Carbon Dioxide 25 (22-32) mmol/L BUN 26 H (9-20) mg/dL Creatinine 1.03 (0.66-1.25) mg/dL Estimated GFR > 60.0 (>60) mL/min BUN/Creatinine Ratio 25.2 H (6-22) Glucose 152 H (80-110) mg/dL Calcium 9.7 (8.4-10.2) mg/dL Total Bilirubin 0.5 (0.2-1.3) mg/dL AST 55 (17-59) IU/L ALT 47 (<50) IU/L Alkaline Phosphatase 183 H (38-126) U/L Total Protein 9.2 H (6.3-8.2) g/dL Albumin 4.3 (3.5-5.0) g/dL Globulin 4.9 H (1.7-4.1) g/dL Albumin/Globulin Ratio 0.9 L (1.0-2.8) Lipase 121 (23-300) U/L Urine Color Dark yellow Urine Appearance Clear Urine pH 5.0 (4.5-8.0) Ur Specific [place] 1.025 (1.000-1.035) Urine Protein 1+ H (Negative) Urine Glucose (UA) Negative (Negative) g/dL Urine Ketones 1+ H (NEGATIVE) Urine Occult Blood Negative (Negative) Urine Nitrate Negative (Negative) Urine Bilirubin Negative (NEGATIVE) Urine Urobilinogen 0.2 (0.2) E.U./dL Ur Leukocyte Esterase Negative (NEGATIVE) Urine RBC 0-1/hpf (0-5/HPF) Urine WBC 0-1/hpf (0-5/HPF) Ur Squamous Epith Cells 0-1 /hpf (0-5/HPF) Calcium Oxalate Crystal Few H Amorphous Sediment Urine Bacteria Occasional (0-1) (None) Hyaline Casts 0-1/lpf (None) Ur Culture Indicated? Cult not indicated SARS-CoV-2 (PCR) (Negative) 02/06/22 02/09/22 02/09/22 Range/Units 20:05 10:08 10:08 WBC 11.7 H (4.5-11.0) X10^3/uL RBC 4.59 (4.5-5.9) X10^6/uL Hgb 13.5 (13.5-17.5) g/dL Hct 41.1 (41-53) % MCV 89.6 (80-100) fL MCH 29.4 (26-34) PG MCHC 32.7 (30-36) % RDW 14.5 (11.6-14.8) % Plt Count 312 (150-400) X10^3/uL Neut % (Auto) 77.6 H (50-75) % Lymph % (Auto) 11.2 L (25-40) % Saunders % (Auto) 9.5 (3-14) % Eos % (Auto) 1.6 L (2-4) % Baso % (Auto) 0.1 (0-2) % Neut # (Auto) 9100 H (4409-7011) /uL Lymph # (Auto) 1300 (7416-0774) /uL Saunders # (Auto) 1100 H (0-900) /uL Eos # (Auto) 200 (0-450) /uL Baso # (Auto) 0 (0-100) /uL Sodium 134 L (137-145) mmol/L Potassium 4.4 (3.4-5.1) mmol/L Chloride 100 (98-107) mmol/L Carbon Dioxide 28 (22-32) mmol/L BUN 18 (9-20) mg/dL Creatinine 0.79 (0.66-1.25) mg/dL Estimated GFR > 60.0 (>60) mL/min BUN/Creatinine Ratio 22.8 H (6-22) Glucose 222 H (80-110) mg/dL Calcium 9.3 (8.4-10.2) mg/dL Total Bilirubin 0.7 (0.2-1.3) mg/dL AST 56 (17-59) IU/L ALT 46 (<50) IU/L Alkaline Phosphatase 164 H (38-126) U/L Total Protein 9.1 H (6.3-8.2) g/dL Albumin 4.2 (3.5-5.0) g/dL Globulin 4.9 H (1.7-4.1) g/dL Albumin/Globulin Ratio 0.9 L (1.0-2.8) Lipase (23-300) U/L Urine Color Urine Appearance Urine pH (4.5-8.0) Ur Specific [place] (1.000-1.035) Urine Protein (Negative) Urine Glucose (UA) (Negative) g/dL Urine Ketones (NEGATIVE) Urine Occult Blood (Negative) Urine Nitrate (Negative) Urine Bilirubin (NEGATIVE) Urine Urobilinogen (0.2) E.U./dL Ur Leukocyte Esterase (NEGATIVE) Urine RBC (0-5/HPF) Urine WBC (0-5/HPF) Ur Squamous Epith Cells (0-5/HPF) Calcium Oxalate Crystal Amorphous Sediment Urine Bacteria (None) Hyaline Casts (None) Ur Culture Indicated? SARS-CoV-2 (PCR) Positive H (Negative) 07/26/21 07/26/21 Range/Units 12:20 17:06 WBC (4.5-11.0) X10^3/uL RBC (4.5-5.9) X10^6/uL Hgb (13.5-17.5) g/dL Hct (41-53) % MCV (80-100) fL MCH (26-34) PG MCHC (30-36) % RDW (11.6-14.8) % Plt Count (150-400) X10^3/uL Neut % (Auto) (50-75) % Lymph % (Auto) (25-40) % Saunders % (Auto) (3-14) % Eos % (Auto) (2-4) % Baso % (Auto) (0-2) % Neut # (Auto) (3067-7089) /uL Lymph # (Auto) (9053-7215) /uL Saunders # (Auto) (0-900) /uL Eos # (Auto) (0-450) /uL Baso # (Auto) (0-100) /uL Sodium (137-145) mmol/L Potassium (3.4-5.1) mmol/L Chloride (98-107) mmol/L Carbon Dioxide (22-32) mmol/L BUN (9-20) mg/dL Creatinine (0.66-1.25) mg/dL Estimated GFR (>60) mL/min BUN/Creatinine Ratio (6-22) Glucose (80-110) mg/dL Calcium (8.4-10.2) mg/dL Total Bilirubin (0.2-1.3) mg/dL AST (17-59) IU/L ALT (<50) IU/L Alkaline Phosphatase (38-126) U/L Total Protein (6.3-8.2) g/dL Albumin (3.5-5.0) g/dL Globulin (1.7-4.1) g/dL Albumin/Globulin Ratio (1.0-2.8) Lipase (23-300) U/L Urine Color Yellow Urine Appearance Cloudy Urine pH 7.0 (4.5-8.0) Ur Specific [place] 1.020 (1.000-1.035) Urine Protein 2+ H (Negative) Urine Glucose (UA) 1+ H (Negative) g/dL Urine Ketones Negative (NEGATIVE) Urine Occult Blood 3+ H (Negative) Urine Nitrate Negative (Negative) Urine Bilirubin Negative (NEGATIVE) Urine Urobilinogen 1.0 (0.2) E.U./dL Ur Leukocyte Esterase 1+ H (NEGATIVE) Urine RBC 10-30/hpf H (0-5/HPF) Urine WBC 5-10/hpf H (0-5/HPF) Ur Squamous Epith Cells (0-5/HPF) Calcium Oxalate Crystal Amorphous Sediment 1+ Urine Bacteria Moderate (10-30) H (None) Hyaline Casts (None) Ur Culture Indicated? Specimen cultured SARS-CoV-2 (PCR) Negative (Negative) Point of care testing: Point of Care Testing Glucose POC 266 Urine Dip Bedside Urine Glucose Negative Bedside Urine Bilirubin + 1 Bedside Urine Ketone +/- 5 Urine Specific [place] 1.03 Bedside Urine Occult Blood - Negative Bedside Urine pH 6 Bedside Urine Protein + 30 Bedside Urine Urobilinogen - Negative Bedside Urine Nitrite - Negative Bedside Urine Leukocytes - Negative Esterase MDM Narrative Medical decision making narrative: Transfer of care from Lalo Caldera PA-c to Dr. Castillo at 1999, 07/23/2021 9:[address] Castillo Talked staff at correction. They report significant behavioral acting out, requiring 2-3 people to help movement bed, severe pain behaviors related to his recent hip surgery. 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 At this point the staff the correction is very reluctant to have him back as he is requiring so many people to help care for him. Will ask Physical therapy to do an evaluation in the morning and have social workers again involved in helping with disposition His COVID test does remain positive, he is not showing any clinical signs of respiratory issues. He is not evidencing pain behaviors at this time. All of his nighttime medications have been ordered Medical workup does not suggest acute bacterial infection, complications of his recent hip surgery, no acute cardiac issues or evidence of bladder infection. 2Dr Mank: Patient signed out to myself by Dr. Castillo. Patient arrived yesterday during my shift and was seen by Lalo Caldera our PA but case was discussed with myself. Patient has done well overnight with no additional pain or vomiting. He is COVID positive still. Plan is for him to be evaluated by PT this morning and social work's persistent with disposition. Patient had been discharged from [facility] to an adult family home but the initial goal had been for a SNF because patient was COVID positive this was not possible. The adult family home states that he requires significant assistance up to 3 people regularly and they do not have the staffing able to care for him appropriately. Patient's labs and imaging reviewed. He came for abdominal pain and vomiting but has not had any additional since arrival with reassuring labs and vitals so additional imaging had not been performed which seems appropriate. PT saw patient today and he does require assistance and direction. AREA REPRESENTATIVE also saw patient and was in contact with 2 covid SNFs and adult family home patient came from yesterday. 10pm [facility] day today. Still no placement options but AREA REPRESENTATIVE has made additional calls to SNFs that can accept covid patients. Had all of his usual HS meds. He is increasingly agitated with mild visual hallucinations. No hypoxia or fever. Most consistent with Sundowning. Will try 1mg oral risperdal. 10:20 pm patient is exhibiting behaviors described his correction. Dramatic yelling out saying that he hurts with increasing agitation. With nursing intervention and cognitive redirecting, symptoms are able to be alleviated. This does not appear to be a primary pain issue rather a behavioral complication of 07/25/21. Marybel. Patient care returned to myself. Patient had behavioral issues overnight but responded to 1mg oral risperdal and redirection. Plan today for PT to re-evaluate with adult family home to see if appropriate for there resources. AREA REPRESENTATIVE returning for additional care. Patient has not had any additional behavioral issues today. He was seen by PT who states he was requiring quite or lift. The caring heart is caregivers were supposed to present today at 2:30pm. of them did but the secondary individuals did not show an or rescheduled to evaluate at 9:00 a.m. tomorrow with PT. I did discuss with Dr. Lacey, if patient is still here in the department tomorrow and they would be willing to accept well we are attempting to find placement. There was discussion with AREA REPRESENTATIVE about possibly having family try to high additional caregivers for the care center. Once this had refused the patient. A 2nd stiff was reviewing a but local phone system had gone down and were unable to talk with them today. Patient care signed out to Dr. Castillo for overnight with goal for AREA REPRESENTATIVE, PT and hopeful disposition tomorrow or plan for admission in hospital if continuing inability to place patient. Dr Castillo 07/25/21 6:40pm discussed with AREA REPRESENTATIVE. She is reviewed with daughter regarding difficulties in having him placed in a custodial facility given the fact that he is not going to be rehabbing. They were not able to help with staff training at correction because only 1 staff member showed up today. He is unwilling to get up out of bed and will need a Franco lift. Daughter and son are seriously considering arranging care for home and taking this gentleman home directly. They do understand that a decision needs to be made by tomorrow as he is simply lodging in the emergency department with no progress being made. Will anticipate continued voiding through the emergency room this evening. All routine meds have been ordered. <Juma Hernandez, - Last Filed: 07/26/21 18:54> Lab Data Labs: Lab Results 07/23/21 07/23/21 07/23/21 Range/Units 17:35 17:35 19:45 WBC 7.0 (4.5-11.0) X10^3/uL RBC 4.58 (4.5-5.9) X10^6/uL Hgb 13.6 (13.5-17.5) g/dL Hct 41.0 (41-53) % MCV 89.4 (80-100) fL MCH 29.7 (26-34) PG MCHC 33.2 (30-36) % RDW 14.8 (11.6-14.8) % Plt Count 303 (150-400) X10^3/uL Neut % (Auto) 63.7 (50-75) % Lymph % (Auto) 21.8 L (25-40) % Saunders % (Auto) 10.6 (3-14) % Eos % (Auto) 3.4 (2-4) % Baso % (Auto) 0.5 (0-2) % Neut # (Auto) 4500 (9950-2045) /uL Lymph # (Auto) 1500 (3937-5553) /uL Saunders # (Auto) 700 (0-900) /uL Eos # (Auto) 200 (0-450) /uL Baso # (Auto) 0 (0-100) /uL Sodium 139 (137-145) mmol/L Potassium 4.4 (3.4-5.1) mmol/L Chloride 107 (98-107) mmol/L Carbon Dioxide 25 (22-32) mmol/L BUN 26 H (9-20) mg/dL Creatinine 1.03 (0.66-1.25) mg/dL Estimated GFR > 60.0 (>60) mL/min BUN/Creatinine Ratio 25.2 H (6-22) Glucose 152 H (80-110) mg/dL Calcium 9.7 (8.4-10.2) mg/dL Total Bilirubin 0.5 (0.2-1.3) mg/dL AST 55 (17-59) IU/L ALT 47 (<50) IU/L Alkaline Phosphatase 183 H (38-126) U/L Total Protein 9.2 H (6.3-8.2) g/dL Albumin 4.3 (3.5-5.0) g/dL Globulin 4.9 H (1.7-4.1) g/dL Albumin/Globulin Ratio 0.9 L (1.0-2.8) Lipase 121 (23-300) U/L Urine Color Dark yellow Urine Appearance Clear Urine pH 5.0 (4.5-8.0) Ur Specific [place] 1.025 (1.000-1.035) Urine Protein 1+ H (Negative) Urine Glucose (UA) Negative (Negative) g/dL Urine Ketones 1+ H (NEGATIVE) Urine Occult Blood Negative (Negative) Urine Nitrate Negative (Negative) Urine Bilirubin Negative (NEGATIVE) Urine Urobilinogen 0.2 (0.2) E.U./dL Ur Leukocyte Esterase Negative (NEGATIVE) Urine RBC 0-1/hpf (0-5/HPF) Urine WBC 0-1/hpf (0-5/HPF) Ur Squamous Epith Cells 0-1 /hpf (0-5/HPF) Calcium Oxalate Crystal Few H Amorphous Sediment Urine Bacteria Occasional (0-1) (None) Hyaline Casts 0-1/lpf (None) Ur Culture Indicated? Cult not indicated SARS-CoV-2 (PCR) (Negative) 07/23/21 07/26/21 07/26/21 Range/Units 20:05 10:08 10:08 WBC 11.7 H (4.5-11.0) X10^3/uL RBC 4.59 (4.5-5.9) X10^6/uL Hgb 13.5 (13.5-17.5) g/dL Hct 41.1 (41-53) % MCV 89.6 (80-100) fL MCH 29.4 (26-34) PG MCHC 32.7 (30-36) % RDW 14.5 (11.6-14.8) % Plt Count 312 (150-400) X10^3/uL Neut % (Auto) 77.6 H (50-75) % Lymph % (Auto) 11.2 L (25-40) % Saunders % (Auto) 9.5 (3-14) % Eos % (Auto) 1.6 L (2-4) % Baso % (Auto) 0.1 (0-2) % Neut # (Auto) 9100 H (2426-2388) /uL Lymph # (Auto) 1300 (2424-4650) /uL Saunders # (Auto) 1100 H (0-900) /uL Eos # (Auto) 200 (0-450) /uL Baso # (Auto) 0 (0-100) /uL Sodium 134 L (137-145) mmol/L Potassium 4.4 (3.4-5.1) mmol/L Chloride 100 (98-107) mmol/L Carbon Dioxide 28 (22-32) mmol/L BUN 18 (9-20) mg/dL Creatinine 0.79 (0.66-1.25) mg/dL Estimated GFR > 60.0 (>60) mL/min BUN/Creatinine Ratio 22.8 H (6-22) Glucose 222 H (80-110) mg/dL Calcium 9.3 (8.4-10.2) mg/dL Total Bilirubin 0.7 (0.2-1.3) mg/dL AST 56 (17-59) IU/L ALT 46 (<50) IU/L Alkaline Phosphatase 164 H (38-126) U/L Total Protein 9.1 H (6.3-8.2) g/dL Albumin 4.2 (3.5-5.0) g/dL Globulin 4.9 H (1.7-4.1) g/dL Albumin/Globulin Ratio 0.9 L (1.0-2.8) Lipase (23-300) U/L Urine Color Urine Appearance Urine pH (4.5-8.0) Ur Specific [place] (1.000-1.035) Urine Protein (Negative) Urine Glucose (UA) (Negative) g/dL Urine Ketones (NEGATIVE) Urine Occult Blood (Negative) Urine Nitrate (Negative) Urine Bilirubin (NEGATIVE) Urine Urobilinogen (0.2) E.U./dL Ur Leukocyte Esterase (NEGATIVE) Urine RBC (0-5/HPF) Urine WBC (0-5/HPF) Ur Squamous Epith Cells (0-5/HPF) Calcium Oxalate Crystal Amorphous Sediment Urine Bacteria (None) Hyaline Casts (None) Ur Culture Indicated? SARS-CoV-2 (PCR) Positive H (Negative) 07/26/21 07/26/21 Range/Units 12:20 17:06 WBC (4.5-11.0) X10^3/uL RBC (4.5-5.9) X10^6/uL Hgb (13.5-17.5) g/dL Hct (41-53) % MCV (80-100) fL MCH (26-34) PG MCHC (30-36) % RDW (11.6-14.8) % Plt Count (150-400) X10^3/uL Neut % (Auto) (50-75) % Lymph % (Auto) (25-40) % Saunders % (Auto) (3-14) % Eos % (Auto) (2-4) % Baso % (Auto) (0-2) % Neut # (Auto) (4677-0389) /uL Lymph # (Auto) (9954-2399) /uL Saunders # (Auto) (0-900) /uL Eos # (Auto) (0-450) /uL Baso # (Auto) (0-100) /uL Sodium (137-145) mmol/L Potassium (3.4-5.1) mmol/L Chloride (98-107) mmol/L Carbon Dioxide (22-32) mmol/L BUN (9-20) mg/dL Creatinine (0.66-1.25) mg/dL Estimated GFR (>60) mL/min BUN/Creatinine Ratio (6-22) Glucose (80-110) mg/dL Calcium (8.4-10.2) mg/dL Total Bilirubin (0.2-1.3) mg/dL AST (17-59) IU/L ALT (<50) IU/L Alkaline Phosphatase (38-126) U/L Total Protein (6.3-8.2) g/dL Albumin (3.5-5.0) g/dL Globulin (1.7-4.1) g/dL Albumin/Globulin Ratio (1.0-2.8) Lipase (23-300) U/L Urine Color Yellow Urine Appearance Cloudy Urine pH 7.0 (4.5-8.0) Ur Specific [place] 1.020 (1.000-1.035) Urine Protein 2+ H (Negative) Urine Glucose (UA) 1+ H (Negative) g/dL Urine Ketones Negative (NEGATIVE) Urine Occult Blood 3+ H (Negative) Urine Nitrate Negative (Negative) Urine Bilirubin Negative (NEGATIVE) Urine Urobilinogen 1.0 (0.2) E.U./dL Ur Leukocyte Esterase 1+ H (NEGATIVE) Urine RBC 10-30/hpf H (0-5/HPF) Urine WBC 5-10/hpf H (0-5/HPF) Ur Squamous Epith Cells (0-5/HPF) Calcium Oxalate Crystal Amorphous Sediment 1+ Urine Bacteria Moderate (10-30) H (None) Hyaline Casts (None) Ur Culture Indicated? Specimen cultured SARS-CoV-2 (PCR) Negative (Negative) Point of care testing: Point of Care Testing Glucose POC 266 Urine Dip Bedside Urine Glucose Negative Bedside Urine Bilirubin + 1 Bedside Urine Ketone +/- 5 Urine Specific [place] 1.03 Bedside Urine Occult Blood - Negative Bedside Urine pH 6 Bedside Urine Protein + 30 Bedside Urine Urobilinogen - Negative Bedside Urine Nitrite - Negative Bedside Urine Leukocytes - Negative Esterase MDM Narrative Medical decision making narrative: Transfer of care from Lalo Caldera PA-c to Dr. Castillo at 1999, 07/23/2021 9:[address] Castillo Talked staff at correction. They report significant behavioral acting out, requiring 2-3 people to help movement bed, severe pain behaviors related to his recent hip surgery. 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 At this point the staff the correction is very reluctant to have him back as he is requiring so many people to help care for him. Will ask Physical therapy to do an evaluation in the morning and have social workers again involved in helping with disposition His COVID test does remain positive, he is not showing any clinical signs of respiratory issues. He is not evidencing pain behaviors at this time. All of his nighttime medications have been ordered Medical workup does not suggest acute bacterial infection, complications of his recent hip surgery, no acute cardiac issues or evidence of bladder infection. 2Dr Mank: Patient signed out to myself by Dr. Castillo. Patient arrived yesterday during my shift and was seen by Lalo Caldera our PA but case was discussed with myself. Patient has done well overnight with no additional pain or vomiting. He is COVID positive still. Plan is for him to be evaluated by PT this morning and social work's persistent with disposition. Patient had been discharged from [facility] to an adult family home but the initial goal had been for a SNF because patient was COVID positive this was not possible. The adult family home states that he requires significant assistance up to 3 people regularly and they do not have the staffing able to care for him appropriately. Patient's labs and imaging reviewed. He came for abdominal pain and vomiting but has not had any additional since arrival with reassuring labs and vitals so additional imaging had not been performed which seems appropriate. PT saw patient today and he does require assistance and direction. AREA REPRESENTATIVE also saw patient and was in contact with 2 covid SNFs and adult family home patient came from yesterday. 10pm [facility] day today. Still no placement options but AREA REPRESENTATIVE has made additional calls to SNFs that can accept covid patients. Had all of his usual HS meds. He is increasingly agitated with mild visual hallucinations. No hypoxia or fever. Most consistent with owning. Will try 1mg oral risperdal. 10:20 pm patient is exhibiting behaviors described his correction. Dramatic yelling out saying that he hurts with increasing agitation. With nursing intervention and cognitive redirecting, symptoms are able to be alleviated. This does not appear to be a primary pain issue rather a behavioral complication of sundowning 07/25/21. Mank. Patient care returned to myself. Patient had behavioral issues overnight but responded to 1mg oral risperdal and redirection. Plan today for PT to re-evaluate with adult family home to see if appropriate for there resources. AREA REPRESENTATIVE returning for additional care. Patient has not had any additional behavioral issues today. He was seen by PT who states he was requiring quite or lift. The caring heart is caregivers were supposed to present today at 2:30pm. of them did but the secondary individuals did not show an or rescheduled to evaluate at 9:00 a.m. tomorrow with PT. I did discuss with Dr. Lacey, if patient is still here in the department tomorrow and they would be willing to accept well we are attempting to find placement. There was discussion with AREA REPRESENTATIVE about possibly having family try to high additional caregivers for the care center. Once this had refused the patient. A 2nd stiff was reviewing a but local phone system had gone down and were unable to talk with them today. Patient care signed out to Dr. Castillo for overnight with goal for AREA REPRESENTATIVE, PT and hopeful disposition tomorrow or plan for admission in hospital if continuing inability to place patient. Dr Castillo 07/25/21 6:40pm discussed with AREA REPRESENTATIVE. She is reviewed with daughter regarding difficulties in having him placed in a custodial facility given the fact that he is not going to be rehabbing. They were not able to help with staff training at correction because only 1 staff member showed up today. He is unwilling to get up out of bed and will need a Franco lift. Daughter and son are seriously considering arranging care for home and taking this gentleman home directly. They do understand that a decision needs to be made by tomorrow as he is simply lodging in the emergency department with no progress being made. Will anticipate continued voiding through the emergency room this evening. All routine meds have been ordered. 07/26/21 0800: Patient received in sign-out from Dr. Castillo. No significant issues at this time, patient has some hematuria and now has hernandez with ir rigation. Awaiting AREA REPRESENTATIVE consultation. Bladder irrigated to clear after 2L, UAC sent to lab and notes likely UTI. No ongoing hematuria. Patient given Rocephin here and Rx to his pharmacy. AREA REPRESENTATIVE and family have been working diligently and there is no indication for hospitalization. Patient will go home with family for a few days and pending placement at a facility <Juma Hernandez, - Last Filed: 07/26/21 18:54> Critical Care Time Critical Care Time: Yes Total Critical Care Time: 120 Attestation: The high probability of a clinically significant, sudden or life threatening deterioration of the [GI] system(s) required my full and direct attention, intervention and personal management. The aggregate critical care time was [120] minutes. This time is in addition to time spent performing reported procedures but includes the following: [x] Data Review and interpretation [x] Patient assessment and monitoring of vital signs x[] Documentation [x] Medication orders and management Discharge Plan Departure Patient Disposition: Home Clinical Impression: Acute UTI, Abdominal pain Instructions: DI for Urinary Tract Infection (UTI) Activity Restrictions/Additional Instructions: *You have been diagnosed with [UTI with hematuria, testing negative for COVID *What to do: *Please continue to take your regular medications as directed. [x] New medication prescriptions sent to your pharmacy: [ [facility]] [ ] New medication written as a paper prescription [ ] No new medications given *Please follow up with your primary care provider in 2-3 days, call for an appointment. Let them know you were seen in the Emergency Department and that we ask that you be seen in follow up. We will electronically transmit a record of today's note if your PCP is in our system *If you do not have a primary care provider please contact the [facility] Resource line at [phone]. They will ask some questions about your medical history and help get you set up with a doctor in the community. *Return to Emergency Department if you should have any new, worsening or concerning symptoms, such as [fever greater than 101 F, shaking chills, worsening pain, persistent vomiting or other bothersome symptoms] Prescriptions: New cefpodoxime 200 mg tablet 200 mg PO BID 10 Days Qty: 20 0RF Rx Instructions: must administer with a meal/food Referrals: Jacki Mtz PA-C [Primary Care Provider] -
[2021-07-23] MEDS: LIDOCAINE 2% (GLYDO) 6 ML GEL TOP (20:17)
--- NOTE | 2021-07-23 20:46 | PC.NURSE ---
per staff at sending facility they will not be accepting pt back d/t is liable behavior at all hours of the night, keeping all the residents up since his arrival on 07/18/2021 the staff continues to state that pt has been agitated and is a safety risk to himself staff and other residents and they will not be accepting him back
[2021-07-23 20:50] LABS: COVID19 - ADMIT (NP swab/PCR) POSITIVE (Negative)
[2021-07-23] MEDS: TOPIRAMATE 25 MG TABLET 50 MG PO (20:58)
[2021-07-23] MEDS: METOPROLOL ER 25 MG TABLET PO (20:58)
[2021-07-23] MEDS: levETIRAcetam 250 MG TABLET PO (20:59)
--- NOTE | 2021-07-23 21:57 | PC.NURSE ---
pt resting in bed, NAD mentation remains same, alert to self
[2021-07-23 23:04] LABS: Appearance Urine UA CLEAR; Bilirubin Urine UA NEGATIVE (NEGATIVE); Glucose Urine UA NEGATIVE (Negative); Ketones Urine UA 1+ (NEGATIVE); Leukocyte Esterase Urine UA NEGATIVE (NEGATIVE); Nitrite Urine UA NEGATIVE (Negative); Occult Blood Urine UA NEGATIVE (Negative); Protein Urine UA 1+ (Negative); Specific Gravity Urine UA 1.025 (1.000-1.035); Urobilinogen Urine UA 0.2 E.U./dL (0.2)
[2021-07-23 23:05] LABS: Color Urine UA Dark Yellow
--- NOTE | 2021-07-23 23:06 | PC.NURSE ---
pt has pulled off all monitoring equipment, refuses to comply with keeping it on to monitor pt, pt in NAD.
[2021-07-23 23:07] LABS: Calcium Oxalate Crystals Urine Few; RBC Urine 0-1/HPF (0-5/HPF); Squamous Epithelial Cell Urine 0-1 /HPF (0-5/HPF); WBC Urine 0-1/HPF (0-5/HPF)
[2021-07-23 23:08] LABS: Bacteria Urine Occasional (0-1); Culture Indicated Urine Cult Not Indicated; Hyaline Casts Urine 0-1/LPF
[2021-07-24] VITALS (9 sets, daily range): BP systolic 114–159; BP diastolic 62–89; PULSE 72–89; RESP 16–19; O2SAT 96–98
[2021-07-24] MEDS: ASPIRIN EC 81 MG TABLET PO (09:56)
[2021-07-24] MEDS: ATORVASTATIN 20 MG TABLET PO (09:56)
[2021-07-24] MEDS: METOPROLOL ER 25 MG TABLET 12.5 MG PO ×2 (09:56→21:07)
[2021-07-24] MEDS: lamoTRIgine 100 MG TABLET 200 MG PO ×2 (10:00→21:08)
[2021-07-24] MEDS: lamoTRIgine 25 MG CHEW TABLET PO ×2 (10:00→21:04)
[2021-07-24] MEDS: TAMSULOSIN 0.4 MG CAPSULE PO (10:00)
[2021-07-24] MEDS: PHENYTOIN ER 100 MG CAPSULE 300 MG PO (10:01)
[2021-07-24] MEDS: FINASTERIDE 5 MG TABLET PO (10:01)
[2021-07-24] MEDS: TOPIRAMATE 25 MG TABLET 50 MG PO ×2 (10:01→21:03)
--- NOTE | 2021-07-24 11:20 | PT.IIE ---
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 He is typically able to make his needs known. According to his son, Matt, he is typically amiable and cooperative. Mobility and Gait Prior to his fall and hip surgery in early June, pt was ambulatory for household and short community distances without assistive device. After hip surgery, pt required mechanical lift for transfers . Medical records from that hospitalization do not mention weightbearing or any other precautions. Pt could not be placed at SNF due to testing positive for COVID at discharge. He went to an adult family home. It is unclear what level of function or assist has been in that time frame. Activities of Daily Living and IADL's Pt is typically independent with dressing tasks. He needs assist for showers which his son usually provides. He is frequently incontinent and uses disposable briefs but is able to use the toilet without assist. Pt sometimes helps with cooking and shopping. He does not drive. Family assist with medication management. Pt 's son reports prior to hip surgery, pt was able to use public transportation to visit his at an adult family home. Prior Functional Level (Other details) Pt has history of seizures ~2/ year. Social History Household Members family Living Arrangements House Number of Floors (Floors) One Floor Number of Stairs To Enter/Railing? 3 concrete stairs to enter with R rail ascending Home Environment High Toilet,Walk in Shower Home Equipment Four Wheel Walker,Bedside Commode,Hand Held Shower, Hospital Bed,Grab Bars In Shower Employment Status Retired Additional Social History Comment Pt lives with his son, Matt, and [id number] as well as their two children aged 4 and 6. Matt works outside the home and [id number] cares for the children full-time. They are currently in the midst of a large remodeling project. M2 PT-IP Current Condition Start: 07/24/21 08:35 Freq: Status: Active Protocol: Document 07/24/21 11:20 AW (Rec: 07/24/21 11:48 AW [id number]) Physical Therapy Current Condition Current Condition Evaluation Date 07/24/21 Treatment Diagnosis R hip hemiarthroplasty ~1 month ago; impaired mobility and gait Onset Date M3 PT-IP Subjective Start: 07/24/21 08:35 Freq: Status: Active Protocol: Document 07/24/21 11:20 AW (Rec: 07/24/21 11:48 AW [id number]) Subjective Physical Therapy Visit Type Type Initial Evaluation Visit Start Time 10:34 Visit Stop Time 11:20 Total Visit Minutes 46 Notes Pt seen in ED for mobility assessment at request of ED provider. Pt's son was present and was primary contributor to history. Physical Therapy Visit Comments Patient Comments Pt is reluctantly willing to participate with PT. Patient Goals Pt is unable to communicate goals. Pt's son hopes to be able to take him home eventually. Therapy Pain Assessment Pain When Pain Assessed During Mobility Pain Present Pain Present Pain Reported Location right hip Scale Used pt unable to quantify Pain Behaviors Calling Out,Facial Grimacing, Guarding,Restlessness,Wincing Pain Management Techniques Distraction,Modification of Treatment,Re-positioning M4 PT-IP Mobility and Gait Start: 07/24/21 08:35 Freq: Status: Active Protocol: Document 07/24/21 11:20 AW (Rec: 07/24/21 12:25 AW [id number]) PT-Bed Mobility Assessment Rolling Type of Rolling Bilateral Level of Assist Moderate Assistance Supine to Sit Supine to Sit Maximum Assistance,1 Person Assistance,Head of Bed Elevated,Bedrails Sit to Supine Sit to Supine Maximum Assistance,Total Assistance,2 Person Assistance Scooting Scooting to Edge of Bed Maximum Assistance Scooting Up and Down in Bed Maximum Assistance PT-Transfer Assessment Sit to and From Stand Sit to and from Stand Maximum Assistance,2 Person Assistance,Use of Upper Extremities Equipment Transfer Assistive Device Gait Belt,Standard Walker Orthotic/Prosthetic Devices or Brace: No Comments Mobility Comments Pt was lying on the gurney and appeared quite somnolent as PT arrived. BP 145/78 HR 80. Alertness increased with mobility but pt was initially unwilling to move. He required a lot of encouragement to attempt to sit up and had difficulty following one-step commands. He needed frequent, simple cues and max A to sit up EOB. Max A to scoot toward EOB and pt resisted. At one point, pt stated he would do it on his own, directing PT and pt's son to stand away from the bed. Without support, pt laid himself back down on the bed with poor trunk control and needed max A x 1-2 and constant encouragement to sit up again. PT placed standard walker (no FWW available in ED) in front of pt and he used it to support himself sitting EOB. Max cues (foot placement, weight shift) and max A x 2 to position pt for attempt to stand. Max/ total A x 2 and verbal/tactile cues for hip/knee extension to stand. Pt stood with flexed knees and hips and did not respond well to verbal/tactile cues for extension. Max A x 2 to maintain standing ~10 seconds and pt reported he needed to sit. After short rest break and continued education on technique, pt attempted standing again with same level of assist and same result. He was able to slide his right foot forward but unable to support himself with UE's to advance his left foot . Pt sat again EOB with hips too far forward. He leaned forward on walker frame and PT needed to block knees to prevent pt from sliding forward. Pt urinated on the floor. PT and pt's son provided max A x 2 to scoot pt 's hips back and to transition him back to supine. Pt needed max A to roll side to side. He was left in the room with call pedersen in reach, bed rails up for safety, and curtain open for max visibility from nursing station. Communicated findings to RN and physician. Gait Assessment Comments Gait Comments Pt unsafe to progress to gait at this time. Stair Climbing Assessment Comments Stair Climbing Comments Not assessed. PT-Balance Assessment Sitting Balance and Reactions Static Sitting Balance Ability Fair Dynamic Sitting Balance Ability Poor Standing Balance and Reactions Static Standing Balance Ability Poor Dynamic Standing Balance Ability Poor Device Used std walker M5 PT-IP Objective Assessments Start: 07/24/21 08:35 Freq: Status: Active Protocol: Document 07/24/21 11:20 AW (Rec: 07/24/21 12:25 AW [id number]) Orientation Orientation/Cognition Level of Alertness Confusional State Orientation Name Language Function Ability No Deficits Noted Safety Awareness Decreased Safety Awareness Memory Description Short Term Impaired Comments Pt has TBI since 2004. He is typically able to make needs known but presents with increased confusion and mild agitation at this encounter. Gross Range of Motion Lower Extremity ROM Assessment Within Functional Limits Strength Comments Strength Comments Unable to formally assess due to pt's difficulty with simple commands. Functionally, pt is able to move legs toward EOB but is hesitant to bear weight . Sensation Assessment Comments Sensation Comments Unable to assess due to cognition. Muscle Tone Comments Muscle Tone Comments Some rigidity noted in all extremities but most likely associated with guarding. M6 PT-IP Treatment Start: 07/24/21 08:35 Freq: Status: Active Protocol: Document 07/24/21 11:20 AW (Rec: 07/24/21 12:25 AW [id number]) Physical Therapy Treatment Education Education Provided Safety M7 PT-IP Assessment and Plan Start: 07/24/21 08:35 Freq: Status: Active Protocol: Document 07/24/21 11:20 AW (Rec: 07/24/21 12:25 AW [id number]) PT Summary Assessment and Plan Potential Rehabilitation Potential Fair Status of Condition at Evaluation Evolving Summary Impairments Pain,Strength,Balance, Cognition,Bed Mobility, Transfers,Gait Assessment Summary Watson is a 76 yo man with recent history of right hip hemiarthroplasty for femur fracture sustained during a a ground level fall. He has history of TBI secondary to glioblastoma treatment in 2004 . He mobilizes independently without assistive device at baseline but will occasionally use a 4WW after a seizure if feeling unsteady. He needs some level of assist for ADL's at home which is provided by his son. He lives with his son , [id number], and young grandchildren. After hip surgery, pt was recommended for SNF but tested positive for COVID at discharge. He ended up going to an adult family home and it is unclear what level of assist he has been requiring. On assessment today, pt is having difficulty with single-step commands and requires max/total assist for bed mobility and sit to stand . He is unable to progress to gait as sitting and standing balance are impaired and require max assist. Pt is unsafe for the home environment at this time and will require subacute rehab and 24/7 assist such as at SNF . Goals Bed Mobility Goal Minimal Assistance Transfer Goal Minimal Assistance,Front Wheeled Walker Gait Goal Minimal Assistance,Front Wheel Walker Gait Distance 50 Other Goals - up/down 3 steps with R rail ascending min assist Days to Meet Goals 10 Frequency of Treatment Frequency Of Treatment Once a Day Treatment Plan Physical Therapy Treatment Plan Bed Mobility Training,Transfer Training,Gait Training, Therapeutic Exercise,Balance Retraining,Post Op Education, Discharge Planning,Hot or Cold Pack,Neuromuscular Re-ed Other Recommendations and Next Treatment bed mobility, sit to stands, Focus transfer Recommendations To Nursing Amount of Assist Needed Mechanical Lift Discharge Recommendations PT Discharge Recommendations SNF Rehab Equipment Needed for Home Before defer to subacute rehab Discharge Transportation Needs at Discharge Wheelchair/Cabulance
--- NOTE | 2021-07-24 11:21 | PC.NURSE ---
Physical Therapy at bedside with Son. Obtained patient care. physical therapy reports patient is a max two person assist. Difficulty following commands. Patient unable to ambulate. Urinated on floor.
--- NOTE | 2021-07-24 13:28 | CM.DANOTE ---
Addendum entered by Neisha Haider 07/24/21 16:38: DCP Note DATA BASE DESIGN ANALYST receives call from [facility] in [place]. It is reported that patient is declined because of patient's behaviors and lack of staff at facility, it was also reported that patient is asymptomatic and it appears he does not need isolation bed due to residual covid positive test. GINNA Schumacher Addendum entered by Neisha Haider 07/24/21 16:05: DCP Note DATA BASE DESIGN ANALYST calls [facility] and leaves requesting return call. DATA BASE DESIGN ANALYST calls [facility] for f/u, it is reported that fax is received. DATA BASE DESIGN ANALYST calls [facility] [place] for f/u and it is reported that fax is received and will be reviewed. DATA BASE DESIGN ANALYST calls patient's daughter Radha (Ph. # [phone]) she reports that she lives [place] [address] [place]. Daughter states that she is the POA. Daughter states that patient's son, her brother Matt (Ph. # [phone]) resides on [address]. Radha confirms that Matt's floors are being done and the home will be ready for patient when repaired. DATA BASE DESIGN ANALYST informs Radha that patient tested positive for Covid and DATA BASE DESIGN ANALYST is seeking SNF rehab bed that accept such patients. Radha states that she and Matt are coming up with a back up plan of having patient stay at a hotel with them if needed until the remodel is complete. DATA BASE DESIGN ANALYST states that two SNFs are reviewing patient currently in [facility]. DATA BASE DESIGN ANALYST states that DATA BASE DESIGN ANALYST will keep daughter updated. Radha states that patient was previously accepted at [facility] in [place] prior to him testing positive for Covid. Plan: continue to f/u with SNF rehab placement and f/u with family for alternative d/c plan. GINNA Schumacher Original Note: DCP Assessment Patient is 76 y/o male who presents to the ED due to concerns for abdominal pain and vomiting. Patient was discharged from [facility] on 07/16/21 after a month long stay and d/c'd to [facility], it is reported to this DATA BASE DESIGN ANALYST that they will not accept patient back to facility. Patient tests positive for Covid-19 at this presentation to ED. RN informs DATA BASE DESIGN ANALYST that patient is not A/Ox4. Patient has hx of TBI. Patient has son and daughter in law who are currently renovating home and planning for patient to return to home when home is safe for patient. DATA BASE DESIGN ANALYST to contact patient's son for further information about his plans. PT evaluates patient and it is recommended that patient is in need of SNF rehab. DATA BASE DESIGN ANALYST calls [facility], It is reported that only the [facility] location in [place] is accepting covid+ patients. Admissions (Ph. # [phone]) states they can review patient. DATA BASE DESIGN ANALYST faxes clinicals for review. DATA BASE DESIGN ANALYST calls Manuela at [facility], it is reported that they are accepting covid+ patients. DATA BASE DESIGN ANALYST faxes clinicals for review. Admissions (Ph. # [phone]). Plan: DATA BASE DESIGN ANALYST to continue to seek higher level of care SNF rehab bed for patient, and to contact patient's son for further information. GINNA Schumacher Discharge Planning/Care Management CM Discharge Assessment Start: 07/24/21 13:02 Freq: Status: Active Protocol: Document 07/24/21 13:23 LN (Rec: 07/24/21 13:28 LN [id number]) Discharge Planning Assessment Assigned Dishwashing Machine Operator GINNA Schumacher Advance Directives? No History Provided By Medical Record Has Patient been admitted in last 30 Yes days? Comment Patient was admitted at [facility] from 06/18/21 through 07/16/21 Prior Living Arrangements Adult Family Home Comment Patient was d/c'd from [facility] to [facility], prior to that patient resided at home with family. It is reported by RNs to this DATA BASE DESIGN ANALYST that patient's son is in the process of renovating home for patient and setting up a hospital bed. Type of transporation used prior to Relies on Others admit Independent with ADL's No Is patient alert and oriented? No Needs Assistance With Bathing,Eating,Grooming,Meal Prep,Toileting,Managing Medications,Home Chores / Shopping Patient/Family Preference [facility] Facility Barriers to Discharge Yes Comment Patient is covid +, DATA BASE DESIGN ANALYST to seek SNFs for covid patients. Discharge Plan Transfer to Higher Level of Care Has Agency SNF been contacted Yes Comment Currently [facility] in [place] and [facility] [place] SNFs have beds and can accept covid+ patients. Review Status In Process Please Provide Date Initial DC 07/24/21 Assessment Was Performed Next Review Type Continued Stay Review
--- NOTE | 2021-07-24 16:12 | PC.NURSE ---
Patient transferred over to hospital bed. Patient incontinent of urine and stool. Raegan care performed. Patient continues to be alert but confused. Patient reaching for objects not present. Concerned about vent on ceiling falling down. Reoriented to place and situation.
--- NOTE | 2021-07-24 17:43 | CM.DANOTE ---
DCP Note SUPERVISOR WEAVING receives call from MAYRA Fu at [facility] (Ph. # [phone]) Nickie requests information regarding patient's presentation at ED, pain level and PT evaluation. heart surgeon provides further information as well. Nickie requests that they attend PT evaluation tomorrow 07/25/21 to assess if they can meet patient's needs at their facility. SUPERVISOR WEAVING calls and leaves with PT and provides contact information for AFM RN and contact information for SUPERVISOR WEAVING. Plan: Continue to seek appropriate SNF or AFM placement for patient, f/u with PT and AFM tomorrow. GINNA Schumacher
[2021-07-24] MEDS: PHENYTOIN ER 100 MG CAPSULE 400 MG PO (17:46)
[2021-07-24] MEDS: INSULIN GLARGINE 100 UNIT/ML 3ML PEN 10 UNIT SUBCUT (21:08)
--- NOTE | 2021-07-24 22:01 | PC.NURSE ---
Patient appears to have visual hallucination, continually reaching for object not present. Concerns of things falling from ceiling. Very restless in bed. Lights dimmed. Offered use of urinal, offered water. Patient declines need. Depend dry and patient tucked back in bed. Pt in nurses view for observation
[2021-07-24] MEDS: risperiDONE 1 MG TABLET PO (22:18)
[2021-07-25] VITALS (11 sets, daily range): BP systolic 131–146; BP diastolic 72–86; PULSE 67–94; RESP 18; TEMP 36.2–36.4; O2SAT 92–98
[2021-07-25] MEDS: TAMSULOSIN 0.4 MG CAPSULE PO (08:54)
[2021-07-25] MEDS: ASPIRIN EC 81 MG TABLET PO (08:54)
[2021-07-25] MEDS: lamoTRIgine 100 MG TABLET 200 MG PO ×2 (08:54→21:15)
[2021-07-25] MEDS: TOPIRAMATE 25 MG TABLET 50 MG PO ×2 (09:15→21:15)
[2021-07-25] MEDS: PHENYTOIN ER 100 MG CAPSULE 300 MG PO (09:15)
[2021-07-25] MEDS: FINASTERIDE 5 MG TABLET PO (09:15)
[2021-07-25] MEDS: lamoTRIgine 25 MG CHEW TABLET PO ×2 (09:16→21:14)
[2021-07-25] MEDS: ATORVASTATIN 20 MG TABLET PO (09:16)
[2021-07-25] MEDS: METOPROLOL ER 25 MG TABLET 12.5 MG PO ×2 (09:16→21:15)
--- NOTE | 2021-07-25 14:07 | CM.DPC ---
Addendum entered by Neisha Haider 07/25/21 18:59: CROSSING FLAGMAN Note CROSSING FLAGMAN discusses the option of Hospice with ED provider Dr. No. Dr. No states that Hospice is not appropriate at this time. GINNA Schumacher Addendum entered by Neisha Haider 07/25/21 18:44: CROSSING FLAGMAN Note PT evaluate patient further and it is determined that caregiver training with [facility] caregivers is not appropriate or at this time as patient is in need of a percy lift. PT states that they will re-evalute patient further. CROSSING FLAGMAN calls patient's daughter/PRATEEK Garcia (Ph. # [phone]) CROSSING FLAGMAN reports that SNFs are not accepting patient. Radha states she does not want patient to return to [facility] due to concern for their ability to care for patient. Radha states that patient participated in PT at this ED when brother was present but did not participate at [facility][1] when family members were not present. Due to patient boarding in ED without placement options, Radha states her preference for patient would be for him to return home. Radha states that she will contact her brother and call ED later this evening or tomorrow morning and identify plan to care for patient. CROSSING FLAGMAN suggests lining up in home caregivers and Radha states she has been in contact with caregivers. CROSSING FLAGMAN calls Nickie caregiver at [facility] (Ph. # [phone]). CROSSING FLAGMAN reviews PT's recommendations and states patient's need for a percy lift and states daughter's preference for patient not to return to [facility]. Nickie states and continues to ask about an xray for patient and states that patient expressed pain when he needed to move. Nickie states that she tried to contact ED about having two caregivers available for caregiver training this afternoon but states that she could not reach ED. CROSSING FLAGMAN explains that the phone system was out of order earlier this afternoon. CROSSING FLAGMAN to report facility to APS due to concern for dropping patient off at ED without intention of accepting patient back at facility. APS Online Report Confirmation Number: [id number] Due to phone service being out of order during SNF business hours, CROSSING FLAGMAN was not able to contact SNFs for f/u at this time. Plan: CROSSING FLAGMAN to f/u with patient's daughter for patient POC to d/c to family home with in home supports. GINNA Schumacher Original Note: DCP Note CROSSING FLAGMAN is informed that PT arranged caregiver training with [facility] staff for this afternoon. One [facility] caregiver arrives at 1330 for PT evaluation and caregiver training and when PT arrives they state that two caregivers are required for training. PT and [facility] caregiver arrange new PT evaluation and caregiver training session for tomorrow 07/26/21 at 0900. It is reported by [facility] caregiver that they are willing to have patient return to [facility] and have communicated this with patient's son and daughter. CROSSING FLAGMAN is not able to make phone calls at this time to SNFs that accept covid patients due to the phone system being out of order at this time. CROSSING FLAGMAN to f/u with [facility] tomorrow and to continue to seek SNF placement further. GINNA Schumacher
--- NOTE | 2021-07-25 14:50 | PT.IPTN ---
Physical Therapy Treatment Note M2 PT-IP Current Condition Start: 07/24/21 08:35 Freq: Status: Active Protocol: Document 07/24/21 11:20 AW (Rec: 07/24/21 11:48 AW [id number]) Physical Therapy Current Condition Current Condition Evaluation Date 07/24/21 Treatment Diagnosis R hip hemiarthroplasty ~1 month ago; impaired mobility and gait Onset Date M3 PT-IP Subjective Start: 07/24/21 08:35 Freq: Status: Active Protocol: Document 07/25/21 14:34 KS (Rec: 07/25/21 15:24 KS [id number]) Subjective Physical Therapy Visit Type Type Treatment Note Visit Start Time 14:34 Visit Stop Time 14:50 Total Visit Minutes 16 Notes Pt seen in AD to assess mobility today Number of BOILER ATTENDANT Visits 1 Physical Therapy Visit Comments Patient Goals Pt unable to communicate. M4 PT-IP Mobility and Gait Start: 07/24/21 08:35 Freq: Status: Active Protocol: Document 07/25/21 14:34 KS (Rec: 07/25/21 15:24 KS [id number]) PT-Bed Mobility Assessment Supine to Sit Supine to Sit Maximum Assistance,2 Person Assistance,Head of Bed Elevated,Bedrails Sit to Supine Sit to Supine Maximum Assistance,1 Person Assistance Scooting Scooting Up and Down in Bed Dependent PT-Transfer Assessment Sit to and From Stand Sit to and from Stand Maximum Assistance,2 Person Assistance,Use of Upper Extremities Equipment Transfer Assistive Device Gait Belt,Front Wheeled Walker Orthotic/Prosthetic Devices or Brace: No Comments Mobility Comments Pt in bed upon arrival from therapy and w/ difficulty communicating. Max A x2 and max cues for sup<>sit w/ bed rails and HOB highly elevated. Max A x2 for scooting to EOB and pt w/ heavy retro lean requiring Max A to stay seated upright. Once EOB, attempted to stand pt Max A x2 but unable to complete full stand due to pt unable to follow commands and leaning backwards /resisting. Pt sat down, attempted sit<>stand again Max A x2 w/ blocking pts feet to avoid slipping forward however pt resisting more heavily and unable to hold pt up w/ max A x2. He then quickly leaned his trunk back all the way to resist sitting upright and we were unable to prevent him from laying down. Pt then attempted to get himself back into bed and was able to clear L leg into bed but ultimately needed Max A for trunk support and RLE elevated and then was dependent for scooting up in bed. Pt left in bed w/ all needs in reach and bed alarm on. Gait Assessment Comments Gait Comments Pt unsafe to progress to gait at this time. Stair Climbing Assessment Comments Stair Climbing Comments Not assessed. PT-Balance Assessment Sitting Balance and Reactions Static Sitting Balance Ability Poor Dynamic Sitting Balance Ability Poor Standing Balance and Reactions Static Standing Balance Ability Poor Dynamic Standing Balance Ability Poor Device Used FWW M5 PT-IP Objective Assessments Start: 07/24/21 08:35 Freq: Status: Active Protocol: Document 07/24/21 11:20 AW (Rec: 07/24/21 12:25 AW [id number]) Orientation Orientation/Cognition Level of Alertness Confusional State Orientation Name Language Function Ability No Deficits Noted Safety Awareness Decreased Safety Awareness Memory Description Short Term Impaired Comments Pt has TBI since 2004. He is typically able to make needs known but presents with increased confusion and mild agitation at this encounter. Gross Range of Motion Lower Extremity ROM Assessment Within Functional Limits Strength Comments Strength Comments Unable to formally assess due to pt's difficulty with simple commands. Functionally, pt is able to move legs toward EOB but is hesitant to bear weight . Sensation Assessment Comments Sensation Comments Unable to assess due to cognition. Muscle Tone Comments Muscle Tone Comments Some rigidity noted in all extremities but most likely associated with guarding. M6 PT-IP Treatment Start: 07/24/21 08:35 Freq: Status: Active Protocol: Document 07/25/21 14:34 KS (Rec: 07/25/21 15:24 KS [id number]) Physical Therapy Treatment Education Education Provided Safety M7 PT-IP Assessment and Plan Start: 07/24/21 08:35 Freq: Status: Active Protocol: Document 07/25/21 14:34 KS (Rec: 07/25/21 15:24 KS [id number]) PT Summary Assessment and Plan Potential Rehabilitation Potential Fair Status of Condition at Evaluation Evolving Summary Impairments Pain,Strength,Balance, Cognition,Bed Mobility, Transfers,Gait Assessment Summary Pt continues to require Max A x2 at minimum and at this point even with Max A x2 is unable to complete full stand due to difficulty following commands, retrolean, resisting , and weakness. Attempted twice for pt sit<>stand and able to stand upright ~80% Max A x2 max cues but unable to maintain. He continues to be limited by difficulty following simple commands and high level of assist. Unable to progress to transfer or gait due to poor sitting and standing balance. Pt is unsafe for the home environment at this time and will require subacute rehab and 24/ assist such as at SNF. Goals Bed Mobility Goal Minimal Assistance Transfer Goal Minimal Assistance,Front Wheeled Walker Gait Goal Minimal Assistance,Front Wheel Walker Gait Distance 50 Other Goals - up/down 3 steps with R rail ascending min assist Days to Meet Goals 10 Frequency of Treatment Frequency Of Treatment Once a Day Treatment Plan Physical Therapy Treatment Plan Bed Mobility Training,Transfer Training,Gait Training, Therapeutic Exercise,Balance Retraining,Post Op Education, Discharge Planning,Hot or Cold Pack,Neuromuscular Re-ed Other Recommendations and Next Treatment bed mobility, sit to stands, Focus transfer Recommendations To Nursing Amount of Assist Needed Mechanical Lift Discharge Recommendations PT Discharge Recommendations SNF Rehab Equipment Needed for Home Before defer to subacute rehab Discharge Transportation Needs at Discharge Stretcher/Ambulance
--- NOTE | 2021-07-25 16:08 | PC.NURSE ---
Assisted with brief/bed change. Pt cooperative with care and turning independently. Right hip incision site without redness/healing well. Skin on buttocks/coccyx intact.
[2021-07-25] MEDS: PHENYTOIN ER 100 MG CAPSULE 400 MG PO (17:30)
[2021-07-25] MEDS: INSULIN GLARGINE 100 UNIT/ML 3ML PEN 10 UNIT SUBCUT (21:16)
[2021-07-26] VITALS (10 sets, daily range): BP systolic 105–150; BP diastolic 63–87; PULSE 80–93; RESP 18; TEMP 36.6; O2SAT 94–99
--- NOTE | 2021-07-26 06:59 | PC.NURSE ---
Went to change pt's brief and there were several large clots noted in pt's diaper. MD made aware. No signs of trauma.
[2021-07-26] MEDS: LIDOCAINE 2% (GLYDO) 6 ML GEL TOP (07:53)
[2021-07-26] MEDS: ASPIRIN EC 81 MG TABLET PO (09:16)
[2021-07-26] MEDS: ATORVASTATIN 20 MG TABLET PO (09:17)
[2021-07-26] MEDS: FINASTERIDE 5 MG TABLET PO (09:17)
[2021-07-26] MEDS: METOPROLOL ER 25 MG TABLET 12.5 MG PO (09:17)
[2021-07-26] MEDS: PHENYTOIN ER 100 MG CAPSULE 300 MG PO (09:18)
[2021-07-26] MEDS: lamoTRIgine 100 MG TABLET 200 MG PO (09:18)
[2021-07-26] MEDS: lamoTRIgine 25 MG CHEW TABLET PO (09:18)
[2021-07-26] MEDS: TOPIRAMATE 25 MG TABLET 50 MG PO (09:19)
[2021-07-26] MEDS: TAMSULOSIN 0.4 MG CAPSULE PO (09:19)
[2021-07-26 10:17] LABS: Add Manual Diff / Slide Review NO; Basophils Absolute Auto 0 /uL (0-100); Basophils Percent Auto 0.1 % (0-2); Eosinophils Absolute Auto 200 /uL (0-450); Eosinophils Percent Auto 1.6 % (2-4); Hematocrit 41.1 % (41-53); Hemoglobin 13.5 g/dL (13.5-17.5); Lymphocytes Absolute Auto 1300 /uL (1100-4500); Lymphocytes Percent Auto 11.2 % (25-40); Mean Corpuscular HGB Conc 32.7 % (30-36); Mean Corpuscular Hemoglobin 29.4 PG (26-34); Mean Corpuscular Volume 89.6 fL (80-100); Monocytes Absolute Auto 1100 /uL (0-900); Monocytes Percent Auto 9.5 % (3-14); Neutrophils Absolute Auto 9100 /uL (1500-7000); Neutrophils Percent Auto 77.6 % (50-75); Platelet Count 312 X10^3/uL (150-400); Red Blood Cell Count 4.59 X10^6/uL (4.5-5.9); Red Cell Distribution Width 14.5 % (11.6-14.8); White Blood Cell Count 11.7 X10^3/uL (4.5-11.0)
[2021-07-26 10:31] LABS: Alanine Aminotransferase 46 IU/L (<50); Albumin 4.2 g/dL (3.5-5.0); Albumin Globulin Ratio 0.9 (1.0-2.8); Alkaline Phosphatase 164 U/L (38-126); Aspartate Aminotransferase 56 IU/L (17-59); BUN Creatinine Ratio 22.8 (6-22); Bilirubin Total 0.7 mg/dL (0.2-1.3); Blood Urea Nitrogen 18 mg/dL (9-20); Calcium 9.3 mg/dL (8.4-10.2); Carbon Dioxide 28 mmol/L (22-32); Chloride 100 mmol/L (98-107); Estimated Glomerular Filt Rate > 60.0 mL/min (>60); Globulin 4.9 g/dL (1.7-4.1); Glucose 222 mg/dL (80-110); HEMOLYSIS 85 (0-50); Potassium 4.4 mmol/L (3.4-5.1); Sodium 134 mmol/L (137-145); Total Protein 9.1 g/dL (6.3-8.2)
[2021-07-26 12:45] LABS: COVID19 -Nasal RAPID Negative (Negative)
--- NOTE | 2021-07-26 14:50 | PT.IPTN ---
Physical Therapy Treatment Note M2 PT-IP Current Condition Start: 07/24/21 08:35 Freq: Status: Active Protocol: Document 07/26/21 14:24 SP (Rec: 07/26/21 15:39 SP [id number]) Physical Therapy Current Condition Current Condition Evaluation Date 07/24/21 Treatment Diagnosis R hip hemiarthroplasty ~1 month ago; impaired mobility and gait Onset Date M3 PT-IP Subjective Start: 07/24/21 08:35 Freq: Status: Active Protocol: Document 07/26/21 14:24 SP (Rec: 07/26/21 15:39 SP [id number]) Subjective Physical Therapy Visit Type Type Treatment Note Visit Start Time 14:24 Visit Stop Time 14:50 Total Visit Minutes 26 Notes PT Aide assisted as 2nd person for physical assist required throughout tx. Number of BUYER INTERN Visits 2 Physical Therapy Visit Comments Patient Comments Pt jumbled words, unable to understand, nonverbal head motion suggested agreeable to working with therapy. Therapy Pain Assessment Pain When Pain Assessed During Mobility Pain Present Pain Present Pain Reported Location right hip Scale Used pt unable to quantify Pain Behaviors Calling Out,Facial Grimacing, Guarding,Restlessness,Wincing Pain Management Techniques Distraction,Modification of Treatment,Re-positioning M4 PT-IP Mobility and Gait Start: 07/24/21 08:35 Freq: Status: Active Protocol: Document 07/26/21 14:24 SP (Rec: 07/26/21 15:39 SP [id number]) PT-Bed Mobility Assessment Supine to Sit Supine to Sit Maximum Assistance,2 Person Assistance,Head of Bed Elevated,Bedrails Sit to Supine Sit to Supine Maximum Assistance,2 Person Assistance Scooting Scooting to Edge of Bed Maximum Assistance Scooting Up and Down in Bed Dependent PT-Transfer Assessment Sit to and From Stand Sit to and from Stand Maximum Assistance,2 Person Assistance,Use of Upper Extremities Equipment Transfer Assistive Device Gait Belt,Front Wheeled Walker Orthotic/Prosthetic Devices or Brace: No Comments Mobility Comments Pt elevated in bed when arrived, unable to understand jarbled communication, nonverbal head nod suggested willing to work with therapy. Sup>sit, scoot to EOB heavy Max A x2 w/ pt trying to use bed rail for self support. Pt tends to retro lean. Heavy Max A x1 to maintain seated at EOB. Sit>partial stand x1 attempt Max A x2 w/ FWW provided front feet support to decrease feet sliding due to retro propulsion, unable to redirect BUE to push from bed, places on FWW, unable come to full standing due to forceful extension. Max A x2 partial stand>sit. Assisted pt sit> supine Max A x2 for trunk and BLE support in bed. Dependent x2 persons scoot up in bed. BUYER INTERN noted pt soiled brief. When elevated HOB noted bed not long enough for pt's height, provided pillow under B knees for comfort and warm blankets due to shivering. BUYER INTERN noted pt's food off to R against wall. Pt had call light, bed alarmed, warm blankets, food and drink within reach. BUYER INTERN notified nursing Max A x2 for bed mob, suggested percy for transfers, recommended pt needs assist for clean brief and longer bed to allow full BLE extension and decrease risk for contractures, suggested pt didn't have food near him, stated BUYER INTERN repositioned tray closer but unsure if pt may need assist for eating, RETAIL SHIFT MANAGER verbalized confirmation. Gait Assessment Comments Gait Comments Pt unsafe to progress to gait at this time. Stair Climbing Assessment Comments Stair Climbing Comments Not assessed. PT-Balance Assessment Sitting Balance and Reactions Static Sitting Balance Ability Poor Dynamic Sitting Balance Ability Poor Standing Balance and Reactions Static Standing Balance Ability Poor Dynamic Standing Balance Ability Poor Device Used FWW M5 PT-IP Objective Assessments Start: 07/24/21 08:35 Freq: Status: Active Protocol: Document 07/24/21 11:20 AW (Rec: 07/24/21 12:25 AW [id number]) Orientation Orientation/Cognition Level of Alertness Confusional State Orientation Name Language Function Ability No Deficits Noted Safety Awareness Decreased Safety Awareness Memory Description Short Term Impaired Comments Pt has TBI since 2004. He is typically able to make needs known but presents with increased confusion and mild agitation at this encounter. Gross Range of Motion Lower Extremity ROM Assessment Within Functional Limits Strength Comments Strength Comments Unable to formally assess due to pt's difficulty with simple commands. Functionally, pt is able to move legs toward EOB but is hesitant to bear weight . Sensation Assessment Comments Sensation Comments Unable to assess due to cognition. Muscle Tone Comments Muscle Tone Comments Some rigidity noted in all extremities but most likely associated with guarding. M6 PT-IP Treatment Start: 07/24/21 08:35 Freq: Status: Active Protocol: Document 07/26/21 14:24 SP (Rec: 07/26/21 15:39 SP [id number]) Physical Therapy Treatment Education Education Provided Safety M7 PT-IP Assessment and Plan Start: 07/24/21 08:35 Freq: Status: Active Protocol: Document 07/26/21 14:24 SP (Rec: 07/26/21 15:39 SP [id number]) PT Summary Assessment and Plan Potential Rehabilitation Potential Fair Status of Condition at Evaluation Evolving Summary Impairments Pain,Strength,Balance, Cognition,Bed Mobility, Transfers,Gait Progress Towards Goals Slow Progress due to Pain,Slow Progress due to Activity Tolerance,Slow Progress - Other Assessment Summary Pt continues to require Max A x2 bed mob, Max A x2 w/ FWW and unable to complete full stand due to difficulty following commands, forceful retrolean BUE/ BLE resisting, and weakness. Only able to attempt sit<>stand x1 and able to stand upright ~ 60% Max A x2 max cues but unable to maintain. He continues to be limited by difficulty following simple commands and high level of assist. Unable to progress to transfer or gait due to poor sitting and standing balance. Pt is unsafe for the home environment at this time and will require subacute rehab and 07/01 assist such as at SNF. Goals Bed Mobility Goal Minimal Assistance Transfer Goal Minimal Assistance,Front Wheeled Walker Gait Goal Minimal Assistance,Front Wheel Walker Gait Distance 50 Other Goals - up/down 3 steps with R rail ascending min assist Days to Meet Goals 10 Frequency of Treatment Frequency Of Treatment Once a Day Treatment Plan Physical Therapy Treatment Plan Bed Mobility Training,Transfer Training,Gait Training, Therapeutic Exercise,Balance Retraining,Post Op Education, Discharge Planning,Hot or Cold Pack,Neuromuscular Re-ed Other Recommendations and Next Treatment bed mobility, sit to stands, Focus transfer Recommendations To Nursing Amount of Assist Needed Mechanical Lift Discharge Recommendations PT Discharge Recommendations SNF Rehab Equipment Needed for Home Before defer to subacute rehab Discharge Transportation Needs at Discharge Stretcher/Ambulance
--- NOTE | 2021-07-26 15:41 | PC.NURSE ---
CBI reinitiated d/t decreased urine output and darkening of his urine to a dark red. One medium clot flushed out immediately. CBI on a slow drip
--- NOTE | 2021-07-26 16:00 | PC.NURSE ---
Urine running clear. CBI stopped. 700 in 715 out. One blood clot noted
[2021-07-26] MEDS: PHENYTOIN ER 100 MG CAPSULE 400 MG PO (16:43)
[2021-07-26] MEDS: cefTRIAXone 1,000 MG in SODIUM CHLORIDE 0.9% 100 ML 200 ML IV (17:00)
--- NOTE | 2021-07-26 17:00 | PC.NURSE ---
Cath flushed to check patency. Cath clear of clots. Urine is a very light pink. Dr. Hernandez aware. IM antbx given for UTI. Family called and updated about UTI and cath care and what emergent situations to look out for.
[2021-07-26 17:10] LABS: Appearance Urine UA CLOUDY; Bilirubin Urine UA NEGATIVE (NEGATIVE); Color Urine UA YELLOW; Glucose Urine UA 1+ g/dL (Negative); Ketones Urine UA NEGATIVE (NEGATIVE); Leukocyte Esterase Urine UA 1+ (NEGATIVE); Nitrite Urine UA NEGATIVE (Negative); Occult Blood Urine UA 3+ (Negative); Protein Urine UA 2+ (Negative)
[2021-07-26 17:24] LABS: Amorphous Sediment Urine 1+; Bacteria Urine Moderate (10-30); Culture Indicated Urine Specimen Cultured; RBC Urine 10-30/HPF (0-5/HPF); WBC Urine 5-10/HPF (0-5/HPF)
--- NOTE | 2021-07-26 18:01 | CM.SWNOTE ---
MECHANICAL DESIGN TECHNICIAN/DCP Note MECHANICAL DESIGN TECHNICIAN speaks with patient's daughter/POA she states that patient will have video intake visit with [facility] today with son present. Daughter indicates that they are setting up [facility] placement for patient and prepared to set up caregiving and HH for patient in the meantime at son's home. [facility] sets up BLS transportation for patient upon d/c to son's home. Per ED provider, patient is medically clear for d/c. Plan: Patient to d/c to family home with family setting up pending acceptance and higher level of care at [facility]. GINNA Schumacher
== END 2021-07-26 17:45 | disposition home or self-care (01) ==
PROVIDERS: Emergency Medicine; Physician Assistant; Emergency Provider Emergency Medicine; PCP Physician Assistant Medical
DX: U07.1 COVID-19 (principal); N39.0 Urinary tract infection, site not specified; R10.9 Unspecified abdominal pain
CPT/HCPCS: 36415; 80053; 81001; 81003; 82962; 83690; 85025; 87077; 87086; 87186; 87635; 93005; 93010; 96365; 96372; 96375; 97162; 97530; 99284; 99285; 99291; 99292; C9803; J0696; J2060